=== PATIENT | female | born 1950 | race Caucasian/White ===

== ENCOUNTER → 2016-12-23 | Outpatient (CLI) | payer MEDICARE, OTHER ==
--- NOTE | 2016-12-23 11:40 | XR ---
EXAMINATION TYPE: XR chest 2V DATE OF EXAM: 12/23/2016 COMPARISON: NONE INDICATION: Cough, rib pain TECHNIQUE: Frontal and lateral views of the chest are obtained. FINDINGS: The heart size is borderline prominent. The pulmonary vasculature is normal. The lungs are clear. No displaced rib fractures are identified. No pneumothorax is evident. IMPRESSION: 1. No acute pulmonary process.
== END | disposition home or self-care (01) ==
LOC: RADXRMAIN 10:46
PROVIDERS: ATTEND Family Medicine
DX: R05 Cough (principal)
CPT/HCPCS: 71020

== ENCOUNTER 2017-04-13 07:11 | Inpatient (IN) | payer MEDICARE, OTHER ==
[2017-04-10 08:07] VITALS: BMI 32.6
--- NOTE | 2017-04-12 12:04 | HP ---
HISTORY AND PHYSICAL Surgery is 04/13/2017 Nora Reyes is a 66-year-old patient seen with symptomatic left knee osteoarthritis. After treatment options were discussed, the patient elected to proceed with left total knee arthroplasty. Consent was obtained. Medical clearance was provided by Dr. Slim Ku. PAST MEDICAL HISTORY: Hypertension, hyperlipidemia. PAST SURGICAL HISTORY: Left knee arthroscopy. Hysterectomy. Herniorrhaphy. DAILY MEDICATIONS: Aspirin, hydrochlorothiazide, simvastatin. ALLERGIES: None reported. SOCIAL HISTORY: Patient denies tobacco use. PHYSICAL EVALUATION LEFT KNEE: Range of motion 0-120 degrees. Moderate effusion. Tenderness medial joint line. Crepitus along the medial and patellofemoral compartments with range of motion. Pain with patellofemoral compression. Ligaments stable. Hip rotation without pain. Distal neurovascular exam intact. Left knee radiographs reveal severe medial and moderate patellofemoral compartment osteoarthritis. IMPRESSION: Left knee osteoarthritis. PLAN: Left total knee arthroplasty. MMODL / IJN: [id number] /
[~2017-04-13 07:11] MED LIST: ACETAMINOPHEN TAB 500 MG TAB PO ONE; DEXAMETHASONE SOD PHOSPHATE 10 MG/ML 1 ML VIAL IV ONE; HYDROmorphone 0.5 MG/0.5 ML SYRINGE IVP PRN; LACTATED RINGERS 1,000 ML IV SCH; MELOXICAM 7.5 MG TAB PO ONE; MIDAZOLAM 2 MG/2 ML VIAL IV PRN; ONDANSETRON 4 MG/2 ML VIAL IVP ONE; SCOPOLAMINE 1.5MG/72HR PATCH TRANSDERM ONE; TRANEXAMIC ACID 1,000 MG in SODIUM CHLORIDE 0.9% 100 ML IVPB ONE; ceFAZolin 2 GM in SODIUM CHLORIDE 0.9% 100 ML IVPB ONE
[2017-04-13] MEDS ORDERED: LACTATED RINGERS 1,000 ML IV ONE ×2 (08:53→11:00)
[2017-04-13] MEDS ORDERED: ROPIVACAINE 246.25 MG, EPINEPHrine 0.5 MG, KETOROLAC 30 MG, cloNIDine HCL/PF 80 MCG, WA... MISCELLANE ONE ×5 (09:43)
[2017-04-13] MEDS ORDERED: PROPOFOL 10 MG/ML 20 ML VIAL IV ONE (10:16)
[2017-04-13] MEDS ORDERED: MIDAZOLAM 2 MG/2 ML VIAL ONE (10:16)
[2017-04-13] MEDS ORDERED: ePHEDrine SULFATE/0.9% NACL/PF 50 MG/5 ML SYRINGE IV ONE (10:16)
[2017-04-13] MEDS ORDERED: fentaNYL (PF) 50 MCG/ML 2 ML AMP ONE (10:16)
[2017-04-13] MEDS ORDERED: SODIUM CHLORIDE 0.9% 100 ML BAG ONE (10:16)
[2017-04-13] MEDS ORDERED: TRANEXAMIC ACID 1,000 MG/10 ML VIAL ONE (10:16)
[2017-04-13] MEDS ORDERED: ROPIVACAINE 1,100 MG, SODIUM CHLORIDE 0.9% 330 ML MISCELLANE PRN ×2 (10:36)
--- NOTE | 2017-04-13 10:37 | P.ONQ ---
Anesthesiology Proc Note - PNB - Peripheral Nerve Block Performed Left Adductor Canal Indication: Acute Post-Operative Pain, Requested by physician (Dr Robertson) Sedation Type: Sedate with meaningful contact maintained Preparation: Sterile Dressing Position: Supine Catheter: Indwelling Needle Types: Other (see comment) (Vicky) Needle Size: 100mm (4") Needle Gauge: 18 Technique: Ultrasound Injectate: 0.5% Ropivacaine (see comment for volume) (20cc) Blood Aspirated: No Pain Paresthesia on Injection Noted: No Resistance on Injection: Normal Events: Uneventful and Well Tolerated
[2017-04-13] MEDS ORDERED: ceFAZolin 3,000 MG in SODIUM CHLORIDE 0.9% IRRIGATIO 3,000 ML IRRIGATION ONE (10:49)
[2017-04-13] MEDS ORDERED: ONDANSETRON 4 MG/2 ML VIAL IVP PRN (12:13)
[2017-04-13] MEDS ORDERED: hydrOXYzine PAMOATE 25 MG CAP PO PRN (12:13)
[2017-04-13] MEDS ORDERED: HYDROmorphone 0.5 MG/0.5 ML SYRINGE IVP PRN ×3 (12:13)
[2017-04-13] MEDS ORDERED: NALOXONE 0.4 MG/ML 1 ML VIAL IV PRN (12:13)
[2017-04-13] MEDS ORDERED: HYDROcodone/APAP 7.5-325MG 1 EACH TAB PO PRN (12:13)
--- NOTE | 2017-04-13 12:13 | P.OP ---
Date of Procedure: 04/13/17 Preoperative Diagnosis: Left knee osteoarthritis Postoperative Diagnosis: Left knee osteoarthritis Procedure(s) Performed: Left total knee arthroplasty Implants: 1. Henry persona left narrow size 9 cruciate retaining cemented femur 2. Henry persona size F cemented tibia 3. Henry persona 14 mm medial congruent polyethylene tibial insert 4. Henry persona 38 mm cemented all polyethylene patella Anesthesia: regional (Adductor canal catheter), local, spinal Surgeon: Nathan Robertson Survey Statistician #1: Cody Jean Estimated Blood Loss (ml): 200 Pathology: other (Bone) Condition: stable Disposition: PACU Indications for Procedure: 66-year-old patient seen with progressive left knee pain. After treatment options were discussed, she elected to proceed with total knee arthroplasty. Operative Findings: See description of procedure Description of Procedure: Patient was taken to the operative suite after having a adductor canal catheter placed by the department of anesthesia. Patient underwent a spinal anesthetic by the department of anesthesia. Patient was given preoperative IV intake antibiotics and TXA. A well-padded tourniquet was placed about the [] lower extremity. The lower extremity was then prepped and draped in the normal sterile orthopedic fashion. A standard anterior incision was made sharply through skin. Dissection was taken down through the subcutaneous soft tissues down to the extensor mechanism. A medial arthrotomy was performed, patella was everted and knee was flexed. There was advanced osteoarthritis noted. A proximal tibial cutting guide was positioned. Proximal tibial cut was made. A distal intramedullary femoral cutting guide was positioned, distal femoral cut made. We placed the appropriate sizing guide and selected the appropriate size. A distal 4-in-1 femoral cutting block was positioned, distal femoral cuts were made. We now placed a trial femoral component into position, along with an appropriate size tibial tray and insert. We now took the knee through range of motion and had full extension good flexion and good overall soft tissue balance noted. The patella was everted and a flush cut made with patellar quad tendon. We templated the patella, appropriate drill holes were made. An appropriate trial patella was positioned, knee was taken through full range of motion with the patella tracking very nicely. The trial patella was removed. Drill holes were made through the femoral component. All trial components were removed after marking off the appropriate rotation of the tibia. The tourniquet was insufflated to 350. Retractors were now positioned along the proximal tibia. An appropriate keel punch was made with the appropriate size tibial guide. At this point appropriate size implants were chosen and opened. The joint was irrigated copiously with pulse lavage mechanical irrigation. The deep soft tissues were infiltrated local analgesic. We mixed antibiotic methylmethacrylate. Once the methyl methacrylate was ready, the tibial component was cemented into place removing any excess methylmethacrylate. The femoral component was cemented into place removing the removing any excess methylmethacrylate. We then inserted the appropriate size polyethylene tibial insert. We made sure that it was locked into position. We took the knee into full extension, and then back in a flexion making sure we had removed any excess methylmethacrylate. The patellar component was then cemented down and secured with clamp. Excess methylmethacrylate removed. We kept the knee in full extension, patellar clamp in position until methylmethacrylate had hardened. Once it had hardened the patellar clamp was removed. The knee was taken through full range of motion. The patella tracked nicely. There was good soft tissue balancing. The tourniquet was now released. Additional hemostasis was achieved via electrocautery. A second gram of TXA was given. The wound was irrigated with pulse lavage mechanical irrigation. The superficial soft tissues were infiltrated local analgesic. The extensor mechanism was repaired with Vicryl. We checked the repair with range of motion and it was stable. The subcutaneous soft tissues were repaired with Vicryl in layers. The skin was approximated with pernio/Dermabond. Sterile dressings were applied followed by loose web roll and Melvin bandage. The patient was transferred to a bed, and taken to recovery in stable and satisfactory condition. Nick BAILEY assisted with the procedure.
--- NOTE | 2017-04-13 13:04 | XR ---
EXAMINATION TYPE: XR knee limited LT DATE OF EXAM: 04/13/2017 CLINICAL HISTORY: Left knee pain and arthritis status post total knee replacement. TECHNIQUE: Portable AP and crosstable lateral views of the left knee are obtained immediately postop eratively. COMPARISON: None FINDINGS: Metallic hardware from total left knee arthroplasty is seen and appears satisfactory in al ignment and position. There is evidence of recent surgery with diffuse subcutaneous gas and soft tis tony swelling noted. Overlying bandage or gauze material is present. IMPRESSION: METALLIC HARDWARE FROM TOTAL LEFT KNEE ARTHROPLASTY IS SATISFACTORY IN ALIGNMENT.
[2017-04-13] MEDS: HYDROcodone/APAP 7.5-325MG 1 EACH TAB PO PRN ×2 (14:16→20:09)
[2017-04-13] MEDS: LACTATED RINGERS 1,000 ML IV SCH ×2 (14:43→14:56)
[2017-04-13] MEDS: traMADol 50 MG TAB PO SCH ×3 (14:55→23:32)
[2017-04-13] MEDS: ceFAZolin 2 GM in SODIUM CHLORIDE 0.9% 100 ML IVPB SCH (18:22)
[2017-04-13] MEDS ORDERED: SENNOSIDES-DOCUSATE SODIUM 1 EACH TAB PO SCH (21:00)
--- NOTE | 2017-04-13 23:11 | CONS ---
CONSULTATION I am covering for Dr. Slim Munoz. DATE OF SERVICE: 04/13/2017 REASON FOR CONSULTATION: Advice regarding hypertension and other medical issues, requested by Orthopedic Surgery. HISTORY OF PRESENT ILLNESS: This 66-year-old woman with past medical history of hypertension, hyperlipidemia, history of mitral valve prolapse, history of DJD, being followed by Dr. Slim Munoz in the outpatient setting, was admitted after left total knee arthroplasty by Dr. Robertson for severe osteoarthritis. There is no history of any fever, rigor or chills, no history of headache, loss of consciousness, chest pain, palpitation at this time. PAST MEDICAL HISTORY: 1. History of hypertension. 2. Hyperlipidemia. 3. History of mitral valve prolapse. 4. History of hernia repair. 5. History of hysterectomy. MEDICATIONS PRIOR TO ADMISSION: 1. Zocor 20 mg p.o. daily. 2. Magnesium 400 mg p.o. daily. 3. Vitamin D3 2000. 4. Calcium 600 mg b.i.d. 5. Ziac 5/6.25 mg p.o. daily. 6. Ecotrin 81 mg daily. ALLERGIES: NONE. FAMILY HISTORY: History of DVT in the family. SOCIAL HISTORY: History of occasional alcohol intake. No history of smoking. REVIEW OF SYSTEMS: ENT: No diminished hearing. No diminished vision. CARDIOVASCULAR SYSTEM: No angina, palpitations. RESPIRATORY SYSTEM: No cough, hemoptysis. GI: No nausea or vomiting. : No dysuria or retention. NERVOUS SYSTEM: No numbness, weakness. ALLERGY/IMMUNOLOGY: No asthma, hayfever. MUSCULOSKELETAL: As mentioned earlier. HEMATOLOGY/ONCOLOGY: No history of anemia. ENDOCRINE: No history of diabetes, hypothyroidism. CONSTITUTIONAL: As mentioned earlier. DERMATOLOGY: Negative. RHEUMATOLOGIC: Negative. PSYCHIATRIC: As mentioned earlier. PHYSICAL EXAMINATION: Patient is alert, oriented x3. Pulse 54, blood pressure 119/66, respiration 16, temperature normal, pulse ox 96% on room air. HEENT: Conjunctivae normal. Oral mucosa moist. NECK: No jugular venous distention. No carotid bruit. No lymph node enlargement. CARDIOVASCULAR SYSTEM: S1, S2 muffled. RESPIRATORY SYSTEM: Breath sounds diminished at the bases. A few scattered rhonchi. ABDOMEN: Soft, nontender. No mass palpable. LEGS: Status post knee arthroplasty. NERVOUS SYSTEM: Higher functions as mentioned earlier. Moves all four limbs. No focal sensory or motor deficits. LYMPHATICS: No lymph node palpable in neck, axillae or groin. SKIN: No ulcer, rash, bleeding. LABS: Labs done preoperatively -- CBC and CMP noted. Cholesterol LDL is 140, cholesterol 231. TSH 4.80. Free T4 is normal; 25-OH vitamin D total is only 16. UA noted. ASSESSMENT: 1. Status post left total knee arthroplasty. 2. Hypertension. 3. Hyperlipidemia. 4. Degenerative joint disease. 5. Vitamin D deficiency. RECOMMENDATIONS AND DISCUSSION: In this 66-year-old woman who presented with multiple complex medical issues, we will monitor the patient closely, continue the current management and symptomatic treatment. Otherwise at this time I recommend resuming the home medications, DVT prophylaxis. Patient is on vitamin D3 supplements 2000 units daily. Continue to monitor. Further recommendations to follow. Dr. Munoz will follow. Aspirin may be initiated when okay with Orthopedics. DVT prophylaxis. See orders for further details. MMODL / IJN: [id number] /
[2017-04-13] MEDS: ENOXAPARIN 30 MG/0.3 ML SYRINGE SQ SCH (23:29)
[2017-04-14] MEDS: HYDROcodone/APAP 7.5-325MG 1 EACH TAB PO PRN ×3 (01:45→15:36)
[2017-04-14] MEDS: ceFAZolin 2 GM in SODIUM CHLORIDE 0.9% 100 ML IVPB SCH (02:43)
--- NOTE | 2017-04-14 06:10 | P.PN ---
Progress Note - Text The patient is status post left adductor canal catheter placement. The catheter was placed for postoperative pain control, status post total left arthroplasty. Ropivacaine 0.2% is infusing at 8 mLs per hour. The patient has no complaints of left lower extremity numbness or weakness. Patient's VAS score is 1-2-10. Assessment: Patient's adductor canal catheter is in place and working appropriately. Plan: continue infusion and adjust it as needed.
[2017-04-14 07:26] LABS: Basophils % (A) 0 %; CH 31.9; CHCM 34.4; Eosinophils % (A) 0 %; HCT 35.6 % (34.0-46.0); HDW 2.91; HGB 12.2 gm/dL (11.4-16.0); Luc # (Auto) 0.15; Luc % (Auto) 2; Lymphocytes # (A) 1.3 k/uL (1.0-4.8); Lymphocytes % (A) 15 %; MCHC 34.3 g/dL (31.0-37.0); MCV 93.2 fL (80.0-100.0); Mean Platelet Volume 6.8; Monocytes # (A) 0.7 k/uL (0-1.0); Monocytes % (A) 7 %; Neutrophils # (A) 7.1 k/uL (1.3-7.7); Neutrophils % (A) 76 %; RBC 3.82 m/uL (3.80-5.40); RDW 13.4 % (11.5-15.5); WBC 9.3 k/uL (3.8-10.6); WBC (Perox) 9.51
[2017-04-14 08:00] VITALS: BP 136/78; PULSE 66; RESP 12; TEMP 97.9
[2017-04-14] MEDS: ENOXAPARIN 30 MG/0.3 ML SYRINGE SQ SCH (08:03)
[2017-04-14] MEDS: traMADol 50 MG TAB PO SCH ×2 (08:03→12:30)
[2017-04-14] MEDS ORDERED: ASPIRIN 81 MG PO SCH (09:00)
[2017-04-14] MEDS ORDERED: ATORVASTATIN 10 MG TAB PO SCH (09:00)
[2017-04-14] MEDS ORDERED: MELOXICAM 7.5 MG TAB PO SCH (09:00)
[2017-04-14] MEDS ORDERED: BISOPROLOL-HCTZ 5-6.25 MG 1 EACH TAB PO SCH (09:00)
[2017-04-14] MEDS ORDERED: MAGNESIUM OXIDE 400 MG TAB PO SCH (09:00)
[2017-04-14] MEDS ORDERED: CHOLECALCIFEROL 1,000 UNIT TAB PO SCH (09:00)
[2017-04-14] MEDS ORDERED: CALCIUM CARBONATE 500 MG CHEWABLE PO SCH (09:00)
[2017-04-14] MEDS ORDERED: FAMOTIDINE 20 MG TAB PO SCH (09:00)
[2017-04-14] MEDS: LACTATED RINGERS 1,000 ML IV SCH (10:01)
--- NOTE | 2017-04-14 11:12 | P.PN ---
Subjective Patient sitting in chair at side of bed. States pain controlled pain or shortness of breath vital signs stable Objective - Vital Signs Vital signs: Vital Signs Temp 97.9 F 04/14/17 07:00 Pulse 66 04/14/17 07:00 Resp 12 04/14/17 07:00 BP 136/78 04/14/17 07:00 Pulse Ox 95 04/14/17 07:00 Intake & Output 04/13/17 04/14/17 04/14/17 18:59 06:59 18:59 Intake Total 1451 1200 Output Total 500 1550 100 Balance 951 -350 -100 Intake: IV 1301 1200 Lactated Ringers 1,000 ml 1200 @ 100 mls/hr IV .Q10H ZAN Rx#:[id number] Oral 150 Output: Urine 300 1550 100 Uretheral (Nuñez) 1200 100 Estimated Blood Loss 200 Other: Voiding Method Indwelling Catheter Indwelling Catheter - Constitutional General appearance: Present: obese - EENT Eyes: Present: PERRLA Ears: bilateral: normal - Neck Neck: Present: normal ROM - Respiratory Respiratory: bilateral: CTA - Cardiovascular Rhythm: regular - Gastrointestinal General gastrointestinal: Present: soft - Integumentary Integumentary: Present: normal - Neurologic Neurologic: Present: CNII-XII intact - Psychiatric Psychiatric: Present: A&O x's 3, appropriate affect, intact judgment & insight - Labs CBC & Chem 7: 04/14/17 06:58 Assessment and Plan Plan: Assessment Post total left knee arthroplasty history of osteoarthritis Hypertension Hyperlipidemia Plan Vital signs stable Medically cleared for discharge
--- NOTE | 2017-04-14 13:16 | P.PN ---
Subjective Principal diagnosis: Status post left total knee arthroplasty Patient is seen today resting in her hospital chair, she appears comfortable. Patient's pain is well-controlled. She is ambulatory well with therapy. She denies headaches, lightheadedness, chest pain, shortness of breath. Objective - Vital Signs Vital signs: Vital Signs Temp 97.9 F 04/14/17 07:00 Pulse 66 04/14/17 07:00 Resp 12 04/14/17 07:00 BP 136/78 04/14/17 07:00 Pulse Ox 95 04/14/17 07:00 Intake & Output 04/13/17 04/14/17 04/14/17 18:59 06:59 18:59 Intake Total 1451 1200 Output Total 500 1550 100 Balance 951 -350 -100 Intake: IV 1301 1200 Lactated Ringers 1,000 ml 1200 @ 100 mls/hr IV .Q10H ZAN Rx#:[id number] Oral 150 Output: Urine 300 1550 100 Uretheral (Nuñez) 1200 100 Estimated Blood Loss 200 Other: Voiding Method Indwelling Catheter Indwelling Catheter - Exam Left lower extremity: Incision is clean, dry and intact. Minimal ecchymosis present on the medial and lateral aspects knee incision. The calf is soft, no tenderness with palpation. Plantar flexion, dorsiflexion, EHL, FHL are intact. Sensory exam to light touch throughout the extremities intact. Dorsal pedis pulses 2+. - Labs CBC & Chem 7: 04/14/17 06:58 Assessment and Plan Plan: Assessment: 1. Postop day #1 status post left total knee arthroplasty Plan: 1. Pain control, continue use of oral medication 2. Daily therapy and use of CPM 3. Wound care instructions were discussed 4. GI and DVT prophylaxis, we'll discharge home on aspirin 25 mg twice a day 5. Medical recommendations 6. Discharge planning: Patient will be likely discharged home today Time with Patient: Less than 30
--- NOTE | 2017-04-14 13:21 | P.DS ---
Providers Date of admission: 04/13/17 08:21 Attending physician: Nathan Robertson Consults: 04/13/17 12:13 Consult Physician Routine Consulting Provider: Slim Munoz Consult Reason/Comments: Medical management Do you want consulting provider notified?: Yes Primary care physician: Slim Munoz Hospital Course: Date of admission: 04/13/2017 Date of discharge: 04/14/2017 Admission diagnosis: Status post left total knee arthroplasty Discharge diagnosis: Same Attending physician: Dr. Robertson Surgical procedures: Left total knee arthroplasty Brief history: Patient is a 66-year-old female with a history of progressive primary left knee osteoarthritis. At this point patient has failed conservative treatment measures and has opted to proceed with a elective left total knee arthroplasty. Hospital course: Details of patient's surgery can be found in operative report. Patient tolerated the procedure well and was subsequently transported to orthopedic floor. Patient's orthopeidc and medical care was provided daily. Patient had daily laboratory tests performed for evaluation of overall blood counts. Patient had daily physical therapy to include strengthening range of motion as well as education with walker ambulation. Patient had daily CPM usage as part of their physical therapy program. Patient was treated with Lovenox for their postoperative DVT prophylaxis during their inpatient stay. Patient was noted to have a relatively uneventful postoperative course. Patient reported satisfactory pain control with oral pain medications by postoperative day 0. Patient showed satisfactory progress with physical therapy. Patient moved steadily through the program and had no difficulty meeting the goals by postoperative day 1. Given patient's otherwise satisfactory course and having met physical therapy goals, plan is to discharge patient home on postoperative day 1. Discharge condition/disposition: Patient will be discharged home in stable condition. Discharge medications: Instructions are given on resumption of patient's normal daily medications per primary care recommendation, in addition patient will be prescribed [place] 7.5 mg/325 mg, tramadol 50 mg, Colace milligrams, Pepcid 20 mg , aspirin 325 mg. Discharge instructions: 1. Wound care and infection precautions, keep incision dry and covered while showering, no lotions, creams, moisturizers. No soaking, tubs, pools, hottubs. Do not scrub over the incision. 2. Weight-bear as tolerated with walker / cane until follow-up. 3. Ice and elevate when necessary. Do not exceed 20 minutes per hour with ice pack. 4. Utilize compression sleeve until seen at first follow up appointment. 5. Visiting nursing care. 6. Home physical therapy [including home CPM]. 7. Pain meds and anticoagulants per prescription. 8. Pain medication has potential to cause constipation. Increase oral fluid and fiber intake. Contact primary care provider if you have not had a bowel movement within 48 hours after discharge 9. No anti-inflammatory medication until discussed at first post operative visit, this including Motrin, Aleve, Mobic, Diclofenac. 10. Follow up in office at 2 weeks postop with Nick Jean PA-C 11. Follow up with your primary care doctor 7-10 days after discharge. 12. Contact [facility] with any questions, . Procedures: Left total knee arthroplasty Patient Condition at Discharge: Good Plan - Discharge Summary New Discharge Prescriptions: New Aspirin 325 mg PO BID #60 tab Docusate [Colace] 100 mg PO DAILY #30 capsule Famotidine [Pepcid] 20 mg PO DAILY #30 tablet HYDROcodone/APAP 7.5-325MG [[place] 7.5] 1 - 2 each PO Q6HR PRN #40 tab PRN Reason: Pain traMADol HCl [Ultram] 50 mg PO Q6H PRN #30 tab PRN Reason: Pain No Action Simvastatin [Zocor] 20 mg PO DAILY Cholecalciferol [Vitamin D3] 2,000 unit PO DAILY Magnesium 400 mg PO DAILY Aspirin [Adult Low Dose Aspirin EC] 81 mg PO DAILY Bisoprolol-Hctz 5-6.25 mg [Ziac 5-6.25] 1 tab PO DAILY Calcium Carbonate [Calcium] 600 mg PO DAILY Discharge Medication List Simvastatin [Zocor] 20 mg PO DAILY 03/18/15 [History] Aspirin [Adult Low Dose Aspirin EC] 81 mg PO DAILY 08/15/15 [History] Cholecalciferol [Vitamin D3] 2,000 unit PO DAILY 08/15/15 [History] Magnesium 400 mg PO DAILY 08/15/15 [History] Bisoprolol-Hctz 5-6.25 mg [Ziac 5-6.25] 1 tab PO DAILY 04/10/17 [History] Calcium Carbonate [Calcium] 600 mg PO DAILY 04/10/17 [History] Aspirin 325 mg PO BID #60 tab 04/14/17 [Rx] Docusate [Colace] 100 mg PO DAILY #30 capsule 04/14/17 [Rx] Famotidine [Pepcid] 20 mg PO DAILY #30 tablet 04/14/17 [Rx] HYDROcodone/APAP 7.5-325MG [[place] 7.5] 1 - 2 each PO Q6HR PRN #40 tab 04/14/17 [ Rx] traMADol HCl [Ultram] 50 mg PO Q6H PRN #30 tab 04/14/17 [Rx] Follow up Appointment(s)/Referral(s): Cody Jean PAC [PHYSICIAN [employer]WMEMBER] - 04/29/17 1:30 pm [facility] Visiting Nurse, [NON-STAFF] - Patient Instructions/Handouts: *Surgery [facility] - On-Q Pain Pump Discharge Instructions, Knee Replacement (DC) Activity/Diet/Wound Care/Special Instructions: CPM through [facility], please call when arrive home [phone]. Orthopedic Discharge Instructions: 1. Wound care and infection precautions, keep incision dry and covered while showering, no lotions, creams, moisturizers. No soaking, pools, hot tubs. Do not scrub over incision. 2. Weight-bear as tolerated with walker / cane until follow-up. 3. Ice and elevate when necessary. Do not exceed 20 minutes per hour with ice pack. 4. Utilize compression sleeve until seen at first follow up appointment. 5. Visiting nursing care. 6. Home physical therapy including home CPM. 7. Pain meds and anticoagulants per prescription. 8. Pain medication has potential to cause constipation. Increase oral fluid and fiber intake. Contact primary care provider if you have not had a bowel movement within 48 hours after discharge. 9. No anti-inflammatory medication until discussed at first post operative visit, this including Motrin, Aleve, Mobic, Diclofenac. 10. Follow up in office at 2 weeks postop with Nick Jean PA-C 11. Follow up with your primary care doctor 7-10 days after discharge. 12. Contact [facility] with any questions, . Discharge Disposition: HOME WITH HOME HEALTH SERVICES
== END 2017-04-14 16:25 | disposition home health service (06) | DRG 470 ==
LOC: 2ORMAIN 08:21 → 3SUR 12:14
PROVIDERS: ADMIT Orthopaedic Surgery; ATTEND Orthopaedic Surgery
PROC: 0SRD0J9 Replacement of Left Knee Joint with Synthetic Substitute, Cemented, Open Approach (ICD-10-PCS; principal; 2017-04-13 10:05)
DX: M17.12 Unilateral primary osteoarthritis, left knee (principal); I10 Essential (primary) hypertension; E55.9 Vitamin D deficiency, unspecified; E78.5 Hyperlipidemia, unspecified; I34.1 Nonrheumatic mitral (valve) prolapse; Z79.899 Other long term (current) drug therapy; Z90.710 Acquired absence of both cervix and uterus; Z79.82 Long term (current) use of aspirin
CPT/HCPCS: 85025; 88300

== ENCOUNTER → 2017-05-20 | Outpatient (CLI) | payer MEDICARE ==
--- NOTE | 2017-05-21 09:39 | ECHOF ---
Referral Reason:I34.1 non rythmatic mitro valve prolapse MEASUREMENTS -------- HEIGHT: 172.7 cm WEIGHT: 97.5 kg BP: RVIDd: 4.1 cm (< 3.3) IVSd: 1.2 cm (0.6 - 1.1) LVIDd: 3.8 cm (3.9 - 5.3) LVPWd: 1.4 cm (0.6 - 1.1) IVSs: 1.5 cm LVIDs: 2.6 cm LVPWs: 1.6 cm LA Diam: 3.7 cm (2.7 - 3.8) Ao Diam: 2.8 cm (2.0 - 3.7) AV Cusp: 1.8 cm (1.5 - 2.6) LA Diam: 4.0 cm (2.7 - 3.8) MV EXCURSION: 17.961 mm (> 18.000) MV EF SLOPE: 26 mm/s (70 - 150) EPSS: 0.2 cm MV E Yovany: 0.53 m/s MV DecT: 252 ms MV A Yovany: 0.57 m/s MV E/A Ratio: 0.93 RAP: 5.00 mmHg RVSP: 56.34 mmHg FINDINGS -------- Sinus rhythm. This was a technically adequate study. The left ventricular size is normal. There is mild concentric left ventricular hypertrophy. Overa ll left ventricular systolic function is normal with, an EF between 55 - 60 %. The right ventricle is moderate to severely enlarged. The right ventricular systolic function is m ildly impaired. The left atrial size is normal. The right atrial size is normal. The aortic valve is trileaflet, and appears structurally normal. No aortic stenosis or regurgitation. Mild mitral regurgitation is present. Moderate tricuspid regurgitation present. There is moderate pulmonary hypertension. The right clairsse tricular systolic pressure, as measured by Doppler, is 56.34mmHg. Trace/mild (physiologic) pulmonic regurgitation. Echo free space represents a pericardial fat pad. CONCLUSIONS -------- 1. Sinus rhythm. 2. This was a technically adequate study. 3. There is mild concentric left ventricular hypertrophy. 4. Overall left ventricular systolic function is normal with, an EF between 55 - 60 %. 5. The right ventricle is moderate to severely enlarged. 6. The right ventricular systolic function is mildly impaired. 7. The left atrial size is normal. 8. The aortic valve is trileaflet, and appears structurally normal. No aortic stenosis or regurgitati on. 9. Mild mitral regurgitation is present. 10. Moderate tricuspid regurgitation present. 11. There is moderate pulmonary hypertension. 12. Trace/mild (physiologic) pulmonic regurgitation. 13. Echo free space represents a pericardial fat pad. BUTTON DECORATING MACHINE OPERATOR: Bailey Constantino RDCS
== END | disposition home or self-care (01) ==
LOC: RADECHMAIN 13:10
PROVIDERS: ATTEND Family Medicine
DX: I08.1 Rheumatic disorders of both mitral and tricuspid valves (principal); I27.20 Pulmonary hypertension, unspecified; E65 Localized adiposity
CPT/HCPCS: 93306

== ENCOUNTER → 2017-09-16 | Outpatient (CLI) | payer MEDICARE ==
--- NOTE | 2017-09-16 12:59 | XR ---
EXAMINATION TYPE: XR chest 2V DATE OF EXAM: 09/16/2017 COMPARISON: NONE INDICATION: Abnormal EKG TECHNIQUE: Frontal and lateral views of the chest are obtained. FINDINGS: The heart size is upper limits of normal. The pulmonary vasculature is normal. The main pulmonary arteries appear prominent. No suspicious consolidation is evident. There appears to be some hyperinflation and flattening the di aphragms compatible with COPD. IMPRESSION: 1. COPD. 2. Prominent main pulmonary vascular vessels, correlate for pulmonary hypertension. 3. Mild cardiomegaly. 4. No acute pulmonary process.
== END | disposition home or self-care (01) ==
LOC: RADECHMAIN 11:07
PROVIDERS: ATTEND Family Medicine
DX: J44.9 Chronic obstructive pulmonary disease, unspecified (principal); R55 Syncope and collapse; I27.20 Pulmonary hypertension, unspecified
CPT/HCPCS: 71046; 93225; 93226

== ENCOUNTER → 2017-10-06 | Outpatient (CLI) | payer MEDICARE ==
--- NOTE | 2017-10-06 11:52 | US ---
EXAMINATION TYPE: US carotid duplex BILAT DATE OF EXAM: 10/06/2017 COMPARISON: NONE CLINICAL HISTORY: R55 Near Syncope,R94.31 Abnormal ekg. EXAM MEASUREMENTS: RIGHT: Peak Systolic Velocity (PSV) cm/sec ----- Right CCA: 74.7 ----- Right ICA: 67.7 ----- Right ECA: 73.0 ICA/CCA ratio: 0.9 RIGHT: End Diastole cm/sec ----- Right CCA: 21.5 ----- Right ICA: 22.3 ----- Right ECA: 11.9 LEFT: Peak Systolic Velocity (PSV) cm/sec ----- Left CCA: 74.7 ----- Left ICA: 80.0 ----- Left ECA: 100.9 ICA/CCA ratio: 1.1 LEFT: End Diastole cm/sec ----- Left CCA: 18.9 ----- Left ICA: 33.7 ----- Left ECA: 20.5 VERTEBRALS (direction of flow): Right Vertebral: Antegrade Left Vertebral: Antegrade Rhythm: Normal No significant stenosis seen, no elevated velocities, mild plaque left bulb. Grayscale, color Doppler, spectral Doppler imaging performed of the carotid arteries. IMPRESSION: No hemodynamic significant stenosis of the proximal internal carotid arteries bilaterall y by Doppler criteria, an indirect measurement of carotid stenosis. Atheromatous changes present with in the carotid bulb on the left. Consider follow-up.
== END | disposition home or self-care (01) ==
LOC: RADUSMAIN 08:06
PROVIDERS: ATTEND Family Medicine
DX: I67.2 Cerebral atherosclerosis (principal); R55 Syncope and collapse; R94.31 Abnormal electrocardiogram [ECG] [EKG]
CPT/HCPCS: 93880

== ENCOUNTER → 2018-05-17 | Outpatient (CLI) | payer MEDICARE ==
--- NOTE | 2018-05-18 10:35 | MM ---
Reason for exam: screening (asymptomatic). Last mammogram was performed 1 year ago. History: Patient is postmenopausal and history of other cancer. Physical Findings: A clinical breast exam by your physician is recommended on an annual basis and results should be correlated with mammographic findings. MG 3D Screening Mammo W/Cad Bilateral CC and MLO view(s) were taken. Prior study comparison: May 14, 2017, bilateral MG 3d screening mammo w/cad. October 15, 2015, right breast MG 3d diag mammo w/cad RT. The breast tissue is heterogeneously dense. This may lower the sensitivity of mammography. There are benign appearing round calcifications bilaterally. There is no discrete abnormality. ASSESSMENT: Benign, BI-RAD 2 RECOMMENDATION: Routine screening mammogram of both breasts in 1 year.
== END | disposition home or self-care (01) ==
LOC: RADMAMWWP 06:49
PROVIDERS: ATTEND Family Medicine
DX: Z12.31 Encounter for screening mammogram for malignant neoplasm of breast (principal)
CPT/HCPCS: 77063; 77067

== ENCOUNTER 2018-07-02 10:07 | Day surgery (SDC) | payer MEDICARE ==
[2018-06-30 15:42] VITALS: BMI 34.2
[~2018-07-02 10:07] MED LIST changes: -ACETAMINOPHEN TAB 500 MG TAB PO ONE; -MELOXICAM 7.5 MG TAB PO ONE; +MIDAZOLAM (PF) 2 MG/2 ML VIAL IV PRN; -MIDAZOLAM 2 MG/2 ML VIAL IV PRN; +Pre Op ABX Message 1 EACH MISC MISCELLANE ONE; -SCOPOLAMINE 1.5MG/72HR PATCH TRANSDERM ONE; -TRANEXAMIC ACID 1,000 MG in SODIUM CHLORIDE 0.9% 100 ML IVPB ONE; -ceFAZolin 2 GM in SODIUM CHLORIDE 0.9% 100 ML IVPB ONE
[2018-07-02 10:31] VITALS: RESP 16; TEMP 97.6
[2018-07-02] MEDS ORDERED: LIDOCAINE 1% 20 ML VIAL (10MG/ML) FOR IV START INTRADERMA ONE (10:46)
[2018-07-02] MEDS ORDERED: ceFAZolin IN SWFI 2 GM/20 ML SYRINGE IVP ONE (11:48)
[2018-07-02] MEDS ORDERED: MIDAZOLAM 2 MG/2 ML VIAL ONE (11:51)
[2018-07-02] MEDS ORDERED: fentaNYL (PF) 50 MCG/ML 2 ML AMP ONE (11:51)
[2018-07-02] MEDS ORDERED: BUPIVACAIN-EPI 0.25%-1:200,000 30 ML VIAL SQ ONE ×2 (12:05)
--- NOTE | 2018-07-02 12:39 | P.OP ---
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 I'll see did reveal squamous cell carcinoma. The lesion is located in the right lower extremity and plan is for excision. The patient was explained the risks, benefits and alternatives to the procedure and did provide consent prior to attending the operating suite. Operative Findings: Right lower extremity squamous cell carcinoma Description of Procedure: The patient was brought into the operating suite and placed in supine position on the operating table. Sedation was provided by anesthesia. The patient was then prepped and draped in regular sterile fashion. An elliptical incision was made approximately 6 x 4 cm in size around the carcinoma lesion. Hemostasis was maintained. Dissection was carried to excise the dermal tissue surrounding the incision. The specimen was sent, tagged with a short superior suture and a long lateral suture. The skin incision was then closed with multiple vertical mattress 2-0 nylon sutures. Sterile dressing was applied. The patient was awakened in the operating suite and taken to postanesthesia care unit in stable condition.
[2018-07-02 13:17] VITALS: BP 137/79; PULSE 59
== END 2018-07-02 13:34 | disposition home or self-care (01) ==
LOC: OR 10:07
PROVIDERS: ATTEND Surgery
DX: C44.722 Squamous cell carcinoma of skin of right lower limb, including hip (principal); Z85.828 Personal history of other malignant neoplasm of skin; I10 Essential (primary) hypertension; E78.00 Pure hypercholesterolemia, unspecified; Z82.49 Family history of ischemic heart disease and other diseases of the circulatory system; I34.1 Nonrheumatic mitral (valve) prolapse; E78.5 Hyperlipidemia, unspecified; Z79.82 Long term (current) use of aspirin; Z79.899 Other long term (current) drug therapy
CPT/HCPCS: 88305; 11606; J2250; J1100; J2405; J3010; J0690

== ENCOUNTER → 2018-09-23 | Outpatient (CLI) | payer MEDICARE ==
--- NOTE | 2018-09-23 11:59 | BD ---
EXAMINATION TYPE: Axial Bone Density DATE OF EXAM: 09/23/2018 COMPARISON: Prior DEXA bone scan 2010 CLINICAL HISTORY: Postmenopausal female. Height: 5FT 7 1/4 IN Weight: 224 FRAX RISK QUESTIONS: Secondary Osteoporosis: 3. Menopause before 45: YES RISK FACTORS HISTORY OF: Active: SOMEWHAT Postmenopausal woman: AGE 45 SINCE THEN HAD A TOTAL HYST AROUND MEDICATIONS: How Long: Additional Medications: SIMVASTATIN, BISOPROLOL, HCT, Additional History: EXAM MEASUREMENTS: Bone mineral densitometry was performed using the [employer] System. Bone mineral density as measured about the Lumbar spine is: ----- L1-L4(G/cm2): 1.377 T Score Values are as follows: ----- L2: 1.1 ----- L3: 1.8 ----- L4: 2.1 ----- L1-L4: 1.6 Bone mineral density has: INCREASED 3.1 % since study of: 2010 Bone mineral density about the R hip (g/cm2): 1.240 Bone mineral density about the L hip (g/cm2): 1.147 T Score values are as follows: -----R Neck: 1.5 -----L Neck: 0.8 -----R Total: 1.5 -----L Total: 1.1 Bone mineral density has: INCREASED 0.5 % since study of: 2010 IMPRESSION: Normal (Values between +1 and -1 indicate normal bone mass). Consider repeating this study in 5 year s or sooner if there is some new clinical indication. NOTE: T-SCORE=SD OF THE YOUNG ADULT MEAN.
== END | disposition home or self-care (01) ==
LOC: RADBDWWP 11:28
PROVIDERS: ATTEND Family Medicine
DX: Z78.0 Asymptomatic menopausal state (principal)
CPT/HCPCS: 77080

== ENCOUNTER → 2019-06-20 | Outpatient (CLI) | payer MEDICARE ==
--- NOTE | 2019-06-20 11:36 | MM ---
Reason for exam: screening (asymptomatic). Last mammogram was performed 1 year and 1 month ago. History: Patient is postmenopausal and history of other cancer. Physical Findings: A clinical breast exam by your physician is recommended on an annual basis and results should be correlated with mammographic findings. MG 3D Screening Mammo W/Cad Bilateral CC and MLO view(s) were taken. Prior study comparison: May 17, 2018, bilateral MG 3d screening mammo w/cad. May 14, 2017, bilateral MG 3d screening mammo w/cad. The breast tissue is heterogeneously dense. This may lower the sensitivity of mammography. Benign appearing bilateral calcifications. No suspicious abnormality. No significant changes when compared with prior studies. ASSESSMENT: Benign, BI-RAD 2 RECOMMENDATION: Routine screening mammogram of both breasts in 1 year.
== END | disposition home or self-care (01) ==
LOC: RADMAMWWP 06:47
PROVIDERS: ATTEND Family Medicine
DX: Z12.39 Encounter for other screening for malignant neoplasm of breast (principal)
CPT/HCPCS: 77063; 77067

== ENCOUNTER → 2019-09-23 | Outpatient (CLI) | payer MEDICARE ==
--- NOTE | 2019-09-23 16:11 | XR ---
EXAMINATION TYPE: XR Hip Bilateral and AP pelvis DATE OF EXAM: 09/23/2019 COMPARISON: NONE HISTORY: Bilateral hip pain with no known injury TECHNIQUE: A single AP view of the pelvis is obtained. Two views of both hips were obtained. FINDINGS: There is no acute fracture/dislocation evident in the pelvis. The hip and sacroiliac join ts appear symmetric and aligned. There is mild acetabular roof sclerosis and cephalad joint space megan rowing bilaterally. No cam deformity is are seen. The overlying soft tissue appears unremarkable. Two views of both hips show no acute fracture or dislocation. No focal lytic or sclerotic lesion see n in either proximal femur. The overlying soft tissue is unremarkable. IMPRESSION: There is no acute fracture or dislocation in the pelvis or the bilateral hips. Mild bila teral femoral acetabular arthropathy.
--- NOTE | 2019-09-24 08:09 | ECHOF ---
Referral Reason:I27.20 Pulmonary hypertension M25.551 MEASUREMENTS -------- HEIGHT: 172.7 cm WEIGHT: 101.6 kg BP: RVIDd: 4.0 cm (< 3.3) IVSd: 1.0 cm (0.6 - 1.1) LVIDd: 3.2 cm (3.9 - 5.3) LVPWd: 1.4 cm (0.6 - 1.1) IVSs: 1.7 cm LVIDs: 2.6 cm LVPWs: 1.4 cm LA Diam: 3.8 cm (2.7 - 3.8) LAESV Index (A-L): 25.30 ml/m Ao Diam: 2.8 cm (2.0 - 3.7) AV Cusp: 1.8 cm (1.5 - 2.6) LA Diam: 4.5 cm (2.7 - 3.8) MV EXCURSION: 15.228 mm (> 18.000) MV EF SLOPE: 40 mm/s (70 - 150) EPSS: 0.2 cm MV E Yovany: 0.64 m/s MV DecT: 288 ms MV A Yovany: 0.91 m/s MV E/A Ratio: 0.71 RAP: 5.00 mmHg RVSP: 48.59 mmHg FINDINGS -------- Sinus rhythm. This was a technically good study. The left ventricular size is normal. Left ventricular wall thickness is normal. Overall left vent ricular systolic function is low-normal with, an EF between 50 - 55 %. The right ventricle is moderately enlarged. The left atrium is moderately dilated. The right atrial size is normal. The aortic valve is trileaflet, and appears structurally normal. No aortic stenosis or regurgitation. Mild mitral annular calcification present. Mild mitral regurgitation is present. Mild tricuspid regurgitation present. There is moderate pulmonary hypertension. The right ventric ular systolic pressure, as measured by Doppler, is 48.59mmHg. Trace/mild (physiologic) pulmonic regurgitation. The aortic root size is normal. There is no pericardial effusion. CONCLUSIONS -------- 1. Sinus rhythm. 2. This was a technically good study. 3. The left ventricular size is normal. 4. Left ventricular wall thickness is normal. 5. Overall left ventricular systolic function is low-normal with, an EF between 50 - 55 %. 6. The right ventricle is moderately enlarged. 7. The left atrium is moderately dilated. 8. The right atrial size is normal. 9. The aortic valve is trileaflet, and appears structurally normal. No aortic stenosis or regurgitati on. 10. Mild mitral annular calcification present. 11. Mild mitral regurgitation is present. 12. Mild tricuspid regurgitation present. 13. There is moderate pulmonary hypertension. 14. The right ventricular systolic pressure, as measured by Doppler, is 48.59mmHg. 15. Trace/mild (physiologic) pulmonic regurgitation. 16. The aortic root size is normal. 17. There is no pericardial effusion. J[employer]ETING ASSOCIATE: Bailey Constantino RDCS
== END | disposition home or self-care (01) ==
LOC: RADECHMAIN 14:38
PROVIDERS: ATTEND Family Medicine
DX: I27.20 Pulmonary hypertension, unspecified (principal); I08.1 Rheumatic disorders of both mitral and tricuspid valves; M12.851 Other specific arthropathies, not elsewhere classified, right hip
CPT/HCPCS: 73521; 93306

== ENCOUNTER → 2020-02-29 | Outpatient (CLI) | payer MEDICARE ==
[2020-02-29 08:17] LABS: Basophils % (A) 1 %; Eosinophils # (A) 0.1 k/uL (0-0.7); Eosinophils % (A) 1 %; HCT 43.5 % (34.0-46.0); HGB 14.2 gm/dL (11.4-16.0); Lymphocytes # (A) 1.6 k/uL (1.0-4.8); Lymphocytes % (A) 31 %; MCH 30.3 pg (25.0-35.0); MCHC 32.7 g/dL (31.0-37.0); MCV 92.7 fL (80.0-100.0); Mean Platelet Volume 6.8; Monocytes # (A) 0.4 k/uL (0-1.0); Monocytes % (A) 7 %; Neutrophils % (A) 57 %; Platelet Count 240 k/uL (150-450); RBC 4.69 m/uL (3.80-5.40); RDW 13.6 % (11.5-15.5); WBC 5.3 k/uL (3.8-10.6)
[2020-02-29 15:35] LABS: African American GFR (CKD) 66.6 (60.0-200.0); Albumin 4.3 g/dL (3.80-4.90); Albumin/Globulin Ratio 1.95 (1.60-3.17); Anion Gap 5.9 mmol/L (4.00-12.00); Calcium 9.5 mg/dL (8.7-10.3); Carbon Dioxide 30.1 mmol/L (21.6-31.8); Chol/HDL Ratio 3.71; Globulin 2.2 g/dL (1.6-3.3); LDL Cholesterol,Calculated 111.8 mg/dL (0.0-131.0); Non-African American GFR(CKD) 57.4 (60.0-200.0); Potassium 4.1 mmol/L (3.5-5.5); Total Bilirubin 0.9 mg/dL (0.2-1.2); Total Protein 6.5 g/dL (6.2-8.2); VLDL Calculation 29.2 mg/dL (5.00-40.00)
== END | disposition home or self-care (01) ==
LOC: LABWHC1 07:28
PROVIDERS: ATTEND Nurse Practitioner Family
DX: E78.5 Hyperlipidemia, unspecified (principal); I10 Essential (primary) hypertension
CPT/HCPCS: 36415; 80053; 80061; 84443; 85025

== ENCOUNTER → 2020-07-12 | Outpatient (CLI) | payer MEDICARE ==
--- NOTE | 2020-07-17 10:00 | MM ---
Reason for exam: screening (asymptomatic). Last mammogram was performed 1 year and 1 month ago. History: Patient is postmenopausal and has history of other cancer at age 69. Physical Findings: A clinical breast exam by your physician is recommended on an annual basis and results should be correlated with mammographic findings. MG 3D Screening Mammo W/Cad Bilateral CC and MLO view(s) were taken. Prior study comparison: June 20, 2019, bilateral MG 3d screening mammo w/cad. May 17, 2018, bilateral MG 3d screening mammo w/cad. The breast tissue is heterogeneously dense. This may lower the sensitivity of mammography. 9 o'clock circumscribed nodularity more prominent on the CC view but similar on the MLO view. Precautionary 6 month follow up recommended. ASSESSMENT: Probably benign, BI-RAD 3 RECOMMENDATION: Follow-up diagnostic mammogram of the left breast in 6 months.
== END | disposition home or self-care (01) ==
LOC: RADMAMWWP 09:08
PROVIDERS: ATTEND Family Medicine
DX: Z12.31 Encounter for screening mammogram for malignant neoplasm of breast (principal)
CPT/HCPCS: 77063; 77067

== ENCOUNTER → 2021-01-17 | Outpatient (CLI) | payer MEDICARE ==
--- NOTE | 2021-01-17 13:32 | MM ---
Reason for exam: follow-up at short interval from prior study. Last mammogram was performed 6 months ago. History: Patient is postmenopausal and has history of other cancer at age 69. Physical Findings: Nurse did not find any significant physical abnormalities on exam. MG 3D Diag Mammo W/Cad LT Spot compression CC, CC, MLO, and LM view(s) were taken of the left breast. Prior study comparison: July 12, 2020, bilateral MG 3d screening mammo w/cad. June 20, 2019, bilateral MG 3d screening mammo w/cad. Three nodules. 12mm nodularity at 3 o'clock, 7cm from nipple. 10mm nodule at 3-4 o'clock, 5cm from nipple. 8mm nodule at 6-7 o'clock, 6.5cm from nipple. Ultrasound left breast. These results were verbally communicated with the patient and result sheet given to the patient on 01/17/21. ASSESSMENT: Incomplete: need additional imaging evaluation, BI-RAD 0 RECOMMENDATION: Ultrasound of the left breast.
--- NOTE | 2021-01-17 13:34 | USB ---
Reason for exam: additional evaluation requested from abnormal screening. History: Patient is postmenopausal and has history of other cancer at age 69. US Breast Limited LT Left limited breast ultrasound including focal area of concern, retroareolar and axilla demonstrates three cystic lesions measuring 1.0 x 0.8 x 0.4c, at 3 o'clock, 0.9 x 1.1 x 0.4cm at 4 o'clock and 0.3 x 0.3 x 0.3cm at 6 o'clock. Simple cysts, not all correspond to mammogram. Mammogram nodules probably benign, recommend 6 month follow up mammogram. These results were verbally communicated with the patient and result sheet given to the patient on 01/17/21. ASSESSMENT: Probably benign, BI-RAD 3 RECOMMENDATION: Follow-up diagnostic mammogram of the left breast in 6 months.
== END | disposition home or self-care (01) ==
LOC: RADMAMWWP 10:14
PROVIDERS: ATTEND Family Medicine
DX: Z08 Encounter for follow-up examination after completed treatment for malignant neoplasm (principal); N63.25 Unspecified lump in the left breast, overlapping quadrants; N63.23 Unspecified lump in the left breast, lower outer quadrant; N63.24 Unspecified lump in the left breast, lower inner quadrant; N60.02 Solitary cyst of left breast; Z78.0 Asymptomatic menopausal state; Z85.9 Personal history of malignant neoplasm, unspecified
CPT/HCPCS: 77065; 76642; G0279; 77061

== ENCOUNTER 2021-02-17 13:07 | Emergency (ER) | payer MEDICARE ==
[2021-02-17 13:11] VITALS: TEMP 97.7
[2021-02-17] MEDS ORDERED: SODIUM CHLORIDE 0.9% 1,000 ML IV ONE (13:23)
[2021-02-17] MEDS ORDERED: SODIUM CHLORIDE 0.9% 50 ML IVPB ONE ×2 (13:45→14:30)
--- NOTE | 2021-02-17 13:46 | ED ---
General Adult HPI - General Chief complaint: Recheck/Abnormal Lab/Rx Stated complaint: Covid+, trouble urinating Time Seen by Provider: 02/17/21 13:14 Source: patient, RN notes reviewed, old records reviewed Mode of arrival: ambulatory Limitations: no limitations - History of Present Illness Initial comments: 70-year-old female presenting with chief complaint weakness and concern for dehydration. Patient was diagnosed with coronavirus 2 days prior and states she has had symptoms of fatigue for the past 4 days. She denies cough or dyspnea. Denies chest pain. Denies abdominal pain. Denies nausea vomiting or diarrhea. She denies measured fever but states she's had some chills. She was vaccinated against coronavirus in August with 2 shots of the [employer] vaccine. - Related Data Home Medications Medication Instructions Recorded Confirmed Simvastatin [Zocor] 20 mg PO DAILY 03/18/15 07/02/18 Aspirin [Adult Low Dose Aspirin EC] 81 mg PO DAILY 08/15/15 07/02/18 Cholecalciferol [Vitamin D3 (25 1,000 unit PO DAILY 08/15/15 07/02/18 Mcg = 1000 Iu)] Magnesium 400 mg PO DAILY 08/15/15 07/02/18 Bisoprolol-Hctz 5-6.25 mg [Ziac 1 tab PO DAILY 04/10/17 07/02/18 5-6.25 MG] Calcium Carbonate [Calcium] 600 mg PO DAILY 04/10/17 07/02/18 Previous Rx's Medication Instructions Recorded Ibuprofen [Motrin] 600 mg PO Q6HR PRN #20 tab 07/02/18 Allergies Allergy/AdvReac Type Severity Reaction Status Date / Time No Known Allergies Allergy Verified 02/17/21 13:11 Review of Systems ROS Statement: Those systems with pertinent positive or pertinent negative responses have been documented in the HPI. ROS Other: All systems not noted in ROS Statement are negative. Past Medical History Past Medical History: Cancer, Hyperlipidemia, Hypertension, Mitral Valve Prolapse (MVP) Additional Past Medical History / Comment(s): hx skin cancer History of Any Multi-Drug Resistant Organisms: None Reported Past Surgical History: Hysterectomy, Orthopedic Surgery Additional Past Surgical History / Comment(s): arthroscopy lt knee Past Anesthesia/Blood Transfusion Reactions: No Reported Reaction Past Psychological History: No Psychological Hx Reported Smoking Status: Never smoker Past Alcohol Use History: Rare Past Drug Use History: None Reported - Past Family History Father Family Medical History: Deep Vein Thrombosis (DVT) General Exam Limitations: no limitations General appearance: alert, in no apparent distress Head exam: Present: atraumatic, normocephalic Eye exam: Present: normal appearance, PERRL ENT exam: Present: mucous membranes dry Neck exam: Present: normal inspection. Absent: tenderness, meningismus Respiratory exam: Present: normal lung sounds bilaterally. Absent: respiratory distress, wheezes, rales Cardiovascular Exam: Present: regular rate, normal rhythm GI/Abdominal exam: Present: soft. Absent: distended, tenderness, guarding Extremities exam: Present: pedal edema (Minimal edema right lower extremity) Neurological exam: Present: alert, oriented X3, CN II-XII intact. Absent: motor sensory deficit Psychiatric exam: Present: normal affect, normal mood Skin exam: Present: warm, dry, intact. Absent: cyanosis, diaphoretic Course Vital Signs 02/17/21 02/17/21 13:08 13:23 Temperature 97.7 F Pulse Rate 77 Respiratory 18 18 Rate Blood Pressure 145/84 O2 Sat by Pulse 99 Oximetry Medical Decision Making - Medical Decision Making 70-year-old female who had presented with fatigue and recent diagnosis of coronavirus. Patient well-appearing with stable vitals, normal oxygenation, lungs are clear, no respiratory complaints. She has a normal CBC, normal electrolytes, normal kidney function. She's given a liter fluid and she is a candidate for monoclonal antibody therapy which is administered in the emergency department. She's given strict return parameters. She will follow-up with her primary care physician. - Lab Data Result diagrams: 02/17/21 13:52 02/17/21 13:52 Lab Results 02/17/21 02/17/21 Range/Units 13:52 13:52 WBC 3.4 L (3.8-10.6) k/uL RBC 4.67 (3.80-5.40) m/uL Hgb 13.7 (11.4-16.0) gm/dL Hct 39.5 (34.0-46.0) % MCV 84.4 D (80.0-100.0) fL MCH 29.4 (25.0-35.0) pg MCHC 34.8 (31.0-37.0) g/dL RDW 13.6 (11.5-15.5) % Plt Count 221 (150-450) k/uL MPV 7.2 Neutrophils % 44 % Lymphocytes % 35 % Monocytes % 15 % Eosinophils % 1 % Basophils % 1 % Neutrophils # 1.5 (1.3-7.7) k/uL Lymphocytes # 1.2 (1.0-4.8) k/uL Monocytes # 0.5 (0-1.0) k/uL Eosinophils # 0.0 (0-0.7) k/uL Basophils # 0.0 (0-0.2) k/uL Sodium 130 L (137-145) mmol/L Potassium 3.8 (3.5-5.1) mmol/L Chloride 98 (98-107) mmol/L Carbon Dioxide 22 (22-30) mmol/L Anion Gap 10 mmol/L BUN 21 H (7-17) mg/dL Creatinine 0.84 (0.52-1.04) mg/dL Est GFR (CKD-EPI)AfAm 81 (>60 ml/min/1.73 sqM) Est GFR (CKD-EPI)NonAf 71 (>60 ml/min/1.73 sqM) Glucose 113 H (74-99) mg/dL Calcium 9.5 (8.4-10.2) mg/dL Total Bilirubin 0.4 (0.2-1.3) mg/dL AST 32 (14-36) U/L ALT 23 (4-34) U/L Alkaline Phosphatase 67 (38-126) U/L Total Protein 6.5 (6.3-8.2) g/dL Albumin 3.8 (3.5-5.0) g/dL Disposition Clinical Impression: COVID, Dehydration Disposition: HOME SELF-CARE Condition: Good Instructions (If sedation given, give patient instructions): Coronavirus Disease 2019 (COVID-19) Is patient prescribed a controlled substance at d/c from ED?: No Referrals: Slim Munoz MD [Primary Care Provider] - 1-2 days Time of Disposition: 14:48
[2021-02-17] MEDS ORDERED: CASIRIVIMAB (REGN10933) (EUA) 600 MG, IMDEVIMAB (REGN10987) (EUA) 600 MG in SODIUM CHLO... IVPB ONE (14:00)
[2021-02-17 14:03] LABS: Basophils % (A) 1 %; Eosinophils % (A) 1 %; HCT 39.5 % (34.0-46.0); HGB 13.7 gm/dL (11.4-16.0); Lymphocytes # (A) 1.2 k/uL (1.0-4.8); Lymphocytes % (A) 35 %; MCH 29.4 pg (25.0-35.0); MCHC 34.8 g/dL (31.0-37.0); Mean Platelet Volume 7.2; Monocytes # (A) 0.5 k/uL (0-1.0); Monocytes % (A) 15 %; Neutrophils # (A) 1.5 k/uL (1.3-7.7); Neutrophils % (A) 44 %; Platelet Count 221 k/uL (150-450); RBC 4.67 m/uL (3.80-5.40); RDW 13.6 % (11.5-15.5); WBC 3.4 k/uL (3.8-10.6)
[2021-02-17 14:15] LABS: MCV 84.4 fL (80.0-100.0)
[2021-02-17 14:23] LABS: Albumin 3.8 g/dL (3.5-5.0); Calcium 9.5 mg/dL (8.4-10.2); Potassium 3.8 mmol/L (3.5-5.1); Total Bilirubin 0.4 mg/dL (0.2-1.3); Total Protein 6.5 g/dL (6.3-8.2)
--- NOTE | 2021-02-17 14:39 | US ---
EXAMINATION TYPE: US venous doppler duplex LE RT DATE OF EXAM: 02/17/2021 2:18 PM COMPARISON: NONE CLINICAL HISTORY: dvt?. +covid, physician thought right leg looked swollen, patient had no complaints SIDE PERFORMED: Right TECHNIQUE: The lower extremity deep venous system is examined utilizing real time linear array sonog julia with graded compression, doppler sonography and color-flow sonography. VESSELS IMAGED: Common Femoral Vein Deep Femoral Vein Greater Saphenous Vein * Femoral Vein Popliteal Vein Small Saphenous Vein * Proximal Calf Veins (* superficial vessels) Right Leg: Negative for DVT IMPRESSION: No evidence of deep vein thrombosis in the right leg.
[2021-02-17 15:00] VITALS: BP 145/69; PULSE 69; RESP 12
[2021-02-17 15:04] LABS: Appearance,Urine Clear (Clear); Bilirubin,Urine Negative (Negative); Blood,Urine Negative (Negative); Color,Urine Light Yellow; Glucose,Urine (UA) Negative (Negative); Ketones,Urine Negative (Negative); Leukocyte Esterase,Urine Negative (Negative); Nitrite,Urine Negative (Negative); Protein,Urine Negative (Negative); Urobilinogen,Urine <2.0 mg/dL (<2.0)
== END 2021-02-17 15:30 | disposition home or self-care (01) ==
LOC: EC 13:07
DX: U07.1 COVID-19 (principal); E86.0 Dehydration; I10 Essential (primary) hypertension; E78.5 Hyperlipidemia, unspecified; Z79.82 Long term (current) use of aspirin; Z79.1 Long term (current) use of non-steroidal anti-inflammatories (NSAID); Z79.899 Other long term (current) drug therapy; Z85.828 Personal history of other malignant neoplasm of skin
CPT/HCPCS: 36415; 80053; 85025; 81003; 93971; 96374; 96361; 99285; Q0243

== ENCOUNTER → 2021-08-07 | Outpatient (CLI) | payer MEDICARE ==
--- NOTE | 2021-08-07 13:32 | MM ---
Reason for exam: follow-up at short interval from prior study. Last mammogram was performed 7 months ago. History: Patient is postmenopausal and has history of other cancer at age 69. Physical Findings: Nurse did not find any significant physical abnormalities on exam. MG 3D Diag Mammo W/Cad GIOVANNA Bilateral CC and MLO view(s) were taken. Prior study comparison: January 17, 2021, left breast MG 3d diag mammo w/cad LT. July 12, 2020, bilateral MG 3d screening mammo w/cad. The breast tissue is heterogeneously dense. This may lower the sensitivity of mammography. There is chronic nodularity bilaterally. There is no dominant lesion. No significant new findings when compared with previous films. These results were verbally communicated with the patient and result sheet given to the patient on 08/07/21. ASSESSMENT: Benign, BI-RAD 2 RECOMMENDATION: Routine screening mammogram of both breasts in 1 year.
== END | disposition home or self-care (01) ==
LOC: RADMAMWWP 12:40
PROVIDERS: ATTEND Family Medicine
DX: R92.8 Other abnormal and inconclusive findings on diagnostic imaging of breast (principal); Z78.0 Asymptomatic menopausal state
CPT/HCPCS: 77066; G0279; 77062

== ENCOUNTER → 2021-10-02 | Outpatient (CLI) | payer MEDICARE | END | disposition home or self-care (01) | LOC: LABWHC1 10:04 | PROVIDERS: ATTEND Nurse Practitioner Family | DX: R00.2 Palpitations (principal) | CPT/HCPCS: 36415; 93005 ==

== ENCOUNTER → 2021-11-12 | Outpatient (CLI) | payer MEDICARE ==
--- NOTE | 2021-12-18 10:45 | P.HOLTER ---
This is a report on the 72 hour Holter monitor. Baseline EKG showed sinus rhythm. Average heart rate is 72 with a minimal 53 and maximum 119. Patient had occasional APCs and occasional PVCs. Patient had one run of nonsustained V. tach. V. tach consisting of 5 beats. Short burst of SVT also noted. Patient did not report her cardiac symptoms of did not maintain a diary. #1. Sinus rhythm. #2. Occasional APCs with recurrence of SVT #3. Occasional PVCs #4. One episode of nonsustained V. tach consisting of 5 beats 6. Patient did not maintain a diary
--- NOTE | 2021-12-19 10:42 | HM ---
This is a report on the 72 hour Holter monitor. Baseline EKG showed sinus rhythm. Average heart rate is 72 with a minimal 53 and maximum 119. Patient had occasional APCs and occasional PVCs. Patient had one run of nonsustained V. tach. consisting of 5 beats. Short burst of SVT also noted. Patient did not report her cardiac symptoms and did not maintain a diary. #1. Sinus rhythm. #2. Occasional APCs with short runs of SVT #3. Occasional PVCs #4. One episode of nonsustained V. tach consisting of 5 to 6. Patient did not maintain a diary MTDD
== END | disposition home or self-care (01) ==
LOC: RADECHMAIN 11:53
PROVIDERS: ATTEND Family Medicine
DX: I47.1 Supraventricular tachycardia (principal); I49.3 Ventricular premature depolarization
CPT/HCPCS: 93225; 93226

== ENCOUNTER → 2021-12-20 | Day surgery (SDC) | payer MEDICARE ==
[2021-12-18 11:52] VITALS: BMI 33.4
[~2021-12-20] MED LIST changes: -DEXAMETHASONE SOD PHOSPHATE 10 MG/ML 1 ML VIAL IV ONE; -HYDROmorphone 0.5 MG/0.5 ML SYRINGE IVP PRN; +LIDOCAINE 1% (10MG/ML) FOR IV START INTRADERMA PRN; -MIDAZOLAM (PF) 2 MG/2 ML VIAL IV PRN; -ONDANSETRON 4 MG/2 ML VIAL IVP ONE; +PROPOFOL 10 MG/ML 20 ML VIAL IV ONE; -Pre Op ABX Message 1 EACH MISC MISCELLANE ONE
[2021-12-20 10:01] VITALS: RESP 16
--- NOTE | 2021-12-20 10:24 | P.PCN ---
Date of Procedure: 12/20/21 Preoperative Diagnosis: Screening Postoperative Diagnosis: Transverse colon polyp Diverticulosis Procedure(s) Performed: Colonoscopy with forcep polypectomy Anesthesia: MAC Surgeon: Zoie Macias Pathology: other (Transverse colon polyp) Condition: stable Disposition: same day Indications for Procedure: 71-year-old female presents for screening colonoscopy. Last colonoscopy was about 10 years ago. Risks, benefits and alternatives were provided. Operative Findings: Transverse colon polyp diverticulosis Description of Procedure: The patient was brought into the endoscopy suite and placed in left lateral decubitus position and adequate sedation was achieved using conscious sedation. A digital rectal exam was performed and mild internal hemorrhoids were palpated. An endoscope was then placed in the rectum and advanced to the cecum as iden tified by landmarks including the appendiceal orifice and the ileocecal valve. The prep was good. The colonoscope was then slowly withdrawn, examining for any mucosal abnormality. The cecum, ascending, transverse, descending and sigmoid colon were visualized adequately. There were no large neoplastic lesions throughout the colon. A small polyp was noted in the transverse colon. This was removed with forceps polypectomy. Hemostasis was maintained. Mild amount of diverticulosis was noted scattered throughout the sigmoid colon. Retroflexion was performed in the rectum and internal hemorrhoids were visible. Excess air was removed, the colonoscope withdrawn and the procedure terminated. The patient was then transferred to the recovery unit in stable condition. Repeat colonoscopy should be performed in 3 years.
[2021-12-20 10:27] VITALS: TEMP 98
[2021-12-20 10:49] VITALS: PULSE 72
[2021-12-20 11:12] VITALS: BP 154/88
== END | disposition home or self-care (01) ==
LOC: ORWHC2ENDO 09:17
PROVIDERS: ATTEND Surgery
DX: Z12.11 Encounter for screening for malignant neoplasm of colon (principal); D12.3 Benign neoplasm of transverse colon; K57.30 Diverticulosis of large intestine without perforation or abscess without bleeding; K64.8 Other hemorrhoids; I34.1 Nonrheumatic mitral (valve) prolapse; I10 Essential (primary) hypertension; E78.5 Hyperlipidemia, unspecified; Z79.899 Other long term (current) drug therapy; Z79.82 Long term (current) use of aspirin
CPT/HCPCS: 88305; 45380; J2704

== ENCOUNTER → 2022-08-08 | Outpatient (CLI) | payer MEDICARE ==
--- NOTE | 2022-08-11 08:32 | MM ---
Reason for Exam: Screening (asymptomatic). Last screening mammogram was performed 12 month(s) ago. Patient History: Menarche at age 13. First Full-Term at age 27. Left ovary removed at age 62. Right ovary removed at age 62. Hysterectomy at age 62. Postmenopausal. Patient has history of breast feeding. Other cancer, age 69. Sister had breast cancer, age 68. Risk Values: Elsa 5 year model risk: 3.4%. NCI Lifetime model risk: 9.3%. Prior Study Comparison: 07/12/2020 Bilateral Screening Mammogram, [facility]. 01/17/2021 Left Diagnostic Mammogram, [facility]. 08/07/2021 Bilateral Diagnostic Mammogram, [facility]. Tissue Density: The breast tissue is heterogeneously dense. This may lower the sensitivity of mammography. Findings: Analyzed By CAD. There are stable scattered and grouped benign-appearing calcifications bilaterally. There is stable asymmetric prominent tissue mimicking distortion bilaterally. Stable Round and oval circumscribed masses are redemonstrated bilaterally consistent with fibrocystic changes again seen. There is no suspicious new group of microcalcifications or new suspicious mass in either breast. Overall Assessment: Benign, BI-RAD 2 Management: Screening Mammogram of both breasts in 1 year. A clinical breast exam by your physician is recommended on an annual basis and results should be correlated with mammographic findings. Electronically signed and approved by: Ollie Dial M.D.
== END | disposition home or self-care (01) ==
LOC: RADMAMWWP 12:26
PROVIDERS: ATTEND Family Medicine
DX: Z12.31 Encounter for screening mammogram for malignant neoplasm of breast (principal); Z78.0 Asymptomatic menopausal state; Z80.3 Family history of malignant neoplasm of breast
CPT/HCPCS: 77063; 77067

== ENCOUNTER → 2023-07-22 | Outpatient (CLI) | payer MEDICARE ==
--- NOTE | 2023-07-22 12:24 | XR ---
EXAMINATION TYPE: XR Hip Bilateral Complete DATE OF EXAM: 07/22/2023 COMPARISON: None HISTORY: Bilateral hip pain TECHNIQUE: Two-view bilateral hips FINDINGS: Right femoral head articulates with the acetabulum. Joint space is preserved. No acute fracture or di slocation is evident. Left femoral head articulates with the acetabulum. Minimal joint space narrowing is present. No acute fracture or dislocation. IMPRESSION: 1. Mild degenerative change left hip
== END | disposition home or self-care (01) ==
LOC: RADXRMAIN 11:39
PROVIDERS: ATTEND Family Medicine
DX: M16.12 Unilateral primary osteoarthritis, left hip (principal)
CPT/HCPCS: 73521

== ENCOUNTER 2023-08-03 05:18 | Emergency (ER) | payer MEDICARE ==
[2023-08-03 05:39] VITALS: RESP 18; TEMP 97.4
--- NOTE | 2023-08-03 06:25 | ED ---
Lower Extremity Injury HPI - General Chief Complaint: Extremity Injury, Lower Stated Complaint: R Knee Pain Time Seen by Provider: 08/03/23 06:04 Source: patient, RN notes reviewed Mode of arrival: wheelchair Limitations: no limitations - History of Present Illness Initial Comments: 72-year-old female presents emergency Department which went right knee pain. Patient states she's been having some pain with states that she was walking this morning felt a pop to her right knee she states she has extreme pain with ambulation states that there is minimal pain at rest. Denies any falls. Denies any prior surgeries no paresthesias no weakness. - Related Data Home Medications Medication Instructions Recorded Confirmed Simvastatin [Zocor] 20 mg PO DAILY 03/18/15 12/18/21 Aspirin [Adult Low Dose Aspirin EC] 81 mg PO DAILY 08/15/15 12/18/21 Cholecalciferol [Vitamin D3 (25 25 mcg PO DAILY 08/15/15 12/20/21 Mcg = 1000 Iu)] Magnesium 400 mg PO DAILY 08/15/15 12/18/21 Calcium Carbonate [Calcium] 600 mg PO DAILY 04/10/17 12/18/21 Lisinopril-Hctz 10-12.5 mg 1 tab PO DAILY 02/17/21 12/20/21 [Zestoretic 10-12.5] Allergies Allergy/AdvReac Type Severity Reaction Status Date / Time No Known Allergies Allergy Verified 12/20/21 09:41 Review of Systems ROS Statement: Those systems with pertinent positive or pertinent negative responses have been documented in the HPI. ROS Other: All systems not noted in ROS Statement are negative. Past Medical History Past Medical History: Cancer, Hyperlipidemia, Hypertension, Mitral Valve Prolapse (MVP) Additional Past Medical History / Comment(s): hx skin cancer History of Any Multi-Drug Resistant Organisms: None Reported Past Surgical History: Hysterectomy, Orthopedic Surgery Additional Past Surgical History / Comment(s): arthroscopy lt knee Past Anesthesia/Blood Transfusion Reactions: No Reported Reaction Past Psychological History: No Psychological Hx Reported Smoking Status: Never smoker Past Alcohol Use History: Rare Past Drug Use History: None Reported - Past Family History Father Family Medical History: Cancer, Deep Vein Thrombosis (DVT) General Exam Limitations: no limitations General appearance: alert, in no apparent distress Head exam: Present: atraumatic, normocephalic, normal inspection Respiratory exam: Present: normal lung sounds bilaterally. Absent: respiratory distress, wheezes, rales, rhonchi, stridor Cardiovascular Exam: Present: regular rate, normal rhythm, normal heart sounds. Absent: systolic murmur, diastolic murmur, rubs, gallop, clicks Extremities exam: Present: other (Right knee there is no cervical swelling, no laxity noted there is pain with varus, neurovascular intact there is mild lateral knee tenderness) Neurological exam: Present: reflexes normal. Absent: motor sensory deficit Course Vital Signs 08/03/23 08/03/23 05:19 07:13 Temperature 97.4 F L Pulse Rate 75 78 Respiratory 18 18 Rate Blood Pressure 167/80 155/98 O2 Sat by Pulse 99 96 Oximetry Medical Decision Making - Medical Decision Making Was pt. sent in by a medical professional or institution (LEO Hawkins, STATEMENT DISTRIBUTION CLERK, urgent care, hospital, or alf...) When possible be specific @ -No Did you speak to anyone other than the patient for history (EMS, parent, family, police, friend...)? What history was obtained from this source @ -No Did you review nursing and triage notes (agree or disagree)? Why? @ -I reviewed and agree with nursing and triage notes Were old charts reviewed (outside hosp., previous admission, EMS record, old EKG, old radiological studies, urgent care reports/EKG's, alf records)? Report findings @ -No old charts were reviewed Differential Diagnosis (chest pain, altered mental status, abdominal pain women, abdominal pain men, vaginal bleeding, weakness, fever, dyspnea, syncope, headache, dizziness, GI bleed, back pain, seizure, CVA, palpatations, mental health, musculoskeletal)? @ -[Knee pain, knee sprain, meniscus injury, EKG interpreted by me (3pts min.). @ -None X-rays interpreted by me (1pt min.). @ -X-ray right knee showing is soft tissue swelling, suprapatellar knee effusion CT interpreted by me (1pt min.). @ -None done U/S interpreted by me (1pt. min.). @ -None done What testing was considered but not performed or refused? (CT, X-rays, U/S, labs)? Why? @ -None What meds were considered but not given or refused? Why? @ -None Did you discuss the management of the patient with other professionals (professionals i.e. , PA, STATEMENT DISTRIBUTION CLERK, lab, RT, psych nurse, social services counselor, harness placer, teacher, nursing officer, telehealth case manager)? Give summary @ -No Was smoking cessation discussed for >3mins.? @ -No Was critical care preformed (if so, how long)? @ -No Were there social determinants of health that impacted care today? How? (Homelessness, low income, unemployed, alcoholism, drug addiction, transportation, low edu. Level, literacy, decrease access to med. care, long term, rehab)? @ -No Was there de-escalation of care discussed even if they declined (Discuss DNR or withdrawal of care, Hospice)? DNR status @ -No What co-morbidities impacted this encounter? (DM, HTN, Smoking, COPD, CAD, Cancer, CVA, ARF, Chemo, Hep., AIDS, mental health diagnosis, sleep apnea, morbid obesity)? @ -None Was patient admitted / discharged? Hospital course, mention meds given and route, prescriptions, significant lab abnormalities, going to OR and other pertinent info. @ -[Discharged x-ray shows soft tissue swelling is concern for LCL injury versus meniscus injury. Patient does have soft tissue swelling and effusion. Patient placed in knee immobilizer was given prescription for walker to remain partial weightbearing follow up with orthopedics. Undiagnosed new problem with uncertain prognosis? @ -No Drug Therapy requiring intensive monitoring for toxicity (Heparin, Nitro, Insulin, Cardizem)? @ -No Were any procedures done? @ -No Diagnosis/symptom? @ -[Knee effusion, knee strain Acute, or Chronic, or Acute on Chronic? @ -[Acute Uncomplicated (without systemic symptoms) or Complicated (systemic symptoms)? @ -[Uncomplicated Side effects of treatment? @ -No Exacerbation, Progression, or Severe Exacerbation? @ -No Poses a threat to life or bodily function? How? (Chest pain, [place], [place], pneumonia, PE, COPD, DKA, ARF, appy, cholecystitis, CVA, Diverticulitis, Homicidal, Suicidal, threat to staff... and all critical care pts) @ -No Disposition Clinical Impression: Strain of knee and leg, right, Knee effusion, right Disposition: HOME SELF-CARE Condition: Stable Instructions (If sedation given, give patient instructions): Knee Sprain (ED), Knee Pain (ED) Additional Instructions: Please return to the Emergency Department if symptoms worsen or any other concerns. Is patient prescribed a controlled substance at d/c from ED?: No Referrals: Slim Munoz MD [Primary Care Provider] - 1-2 days Gumaro Tobar MD [STAFF PHYSICIAN] - 1-2 days Time of Disposition: 07:18
--- NOTE | 2023-08-03 06:36 | XR ---
EXAM: XR Right Knee, 3 Views CLINICAL HISTORY: Pain TECHNIQUE: Three views of the right knee. COMPARISON: No relevant prior studies available. FINDINGS: Bones/joints: Mild narrowing of the medial tibiofemoral compartment with associated bony productive changes suggesting mild osteoarthropathy. Small suprapatellar knee joint effusion. Superior and inferior patellar enthesophytes. Tibial tuberosity enthesophyte also noted. No evidence of acute fracture or dislocation. Soft tissues: Diffuse soft tissue swelling. IMPRESSION: 1. No evidence of acute fracture or dislocation. 2. Diffuse soft tissue swelling. 3. Mild osteoarthropathy. 4. Small suprapatellar knee joint effusion.
[2023-08-03 07:16] VITALS: PULSE 78
[2023-08-03 07:40] VITALS: BP 155/98
== END 2023-08-03 07:47 | disposition home or self-care (01) ==
LOC: EC 05:18
DX: S86.911A Strain of unspecified muscle(s) and tendon(s) at lower leg level, right leg, initial encounter (principal); M25.461 Effusion, right knee; I10 Essential (primary) hypertension; E78.5 Hyperlipidemia, unspecified; Z79.82 Long term (current) use of aspirin; Z79.899 Other long term (current) drug therapy; X50.9XXA Other and unspecified overexertion or strenuous movements or postures, initial encounter; Y93.01 Activity, walking, marching and hiking
CPT/HCPCS: 73562; 99283; L1830

== ENCOUNTER → 2023-08-10 | Outpatient (CLI) | payer MEDICARE ==
--- NOTE | 2023-08-10 18:44 | BD ---
EXAMINATION TYPE: Axial Bone Density DATE OF EXAM: 08/10/2023 CLINICAL HISTORY: 72 years old Female. ICD-10 CODE: Z78.0 ASYMPTOMATIC MENOPAUSAL STA Height: 66in Weight: 228lb FRAX RISK QUESTIONS: Secondary Osteoporosis: 3. Menopause before 45: yes RISK FACTORS HISTORY OF: MEDICATIONS: EXAM MEASUREMENTS: Bone mineral densitometry was performed using the SQMOS System. Bone mineral density as measured about the Lumbar spine is: ----- L1-L4(G/cm2): 1.370 T Score Values are as follows: ----- L1: 0.5 ----- L2: 1.1 ----- L3: 1.6 ----- L4: 2.5 ----- L1-L4: 1.6 Z Score Values are as follows: ----- L1: 1.1 ----- L2: 1.6 ----- L3: 2.2 ----- L4: 3.1 ----- L1-L4: 2.1 previous study of 09-23-18 unavailable Bone mineral density about the R hip (g/cm2): 1.203 Bone mineral density about the L hip (g/cm2): 1.176 T Score values are as follows: -----R Neck: 1.4 -----L Neck: 0.7 -----R Total: 1.6 -----L Total: 1.3 Z Score values are as follows: -----R Neck: 2.5 -----L Neck: 1.7 -----R Total: 2.3 -----L Total: 2.1 Bone mineral density has: Increased 2.3% since study of: 08-21-10 FRAX%s: The graph provided illustrates a 5.8% chance for a major osteoporotic fx and a 0.2% chance fo r the hips probability for fx in 10 years time. IMPRESSION: Normal (Values between +1 and -1 indicate normal bone mass). Consider repeating this study in 5 year s or sooner if there is some new clinical indication. NOTE: T-SCORE=SD OF THE YOUNG ADULT MEAN.
--- NOTE | 2023-08-11 08:12 | MM ---
Reason for Exam: Screening (asymptomatic). Last screening mammogram was performed 12 month(s) ago. Patient History: Menarche at age 13. First Full-Term at age 27. Left ovary removed at age 62. Right ovary removed at age 62. Hysterectomy at age 62. Postmenopausal. Patient has history of breast feeding. Sister had breast cancer, age 68. Risk Values: Elsa 5 year model risk: 3.5%. NCI Lifetime model risk: 8.8%. Prior Study Comparison: 01/17/2021 Left Diagnostic Mammogram, [facility]. 08/07/2021 Bilateral Diagnostic Mammogram, [facility]. 08/08/2022 Bilateral MG 3D screening mammo w/cad, [facility]. Tissue Density: The breast tissue is heterogeneously dense. This may lower the sensitivity of mammography. Findings: Analyzed By CAD. Increasing nodularity upper outer left breast. Additional views and ultrasound recommended. Scattered benign-appearing calcifications seen bilaterally. Overall Assessment: Incomplete: need additional imaging evaluation, BI-RAD 0 Management: Diagnostic Mammogram of the left breast. . Patient should continue monthly self-breast exams. A clinical breast exam by your physician is recommended on an annual basis. This exam should not preclude additional follow-up of suspicious palpable abnormalities. Note on Elsa scores and lifetime risk: 1. A Elsa score greater than 3% is considered moderate risk. If this is the case, consider specialist referral to assess eligibility for a risk reducing agent. 2. If overall lifetime risk for the development of breast cancer is 20% or higher, the patient may qualify for future screening with alternating mammogram and breast MRI. Electronically signed and approved by: Adi Grady M.D. Radiologis
== END | disposition home or self-care (01) ==
LOC: RADMAMWWP 14:39
PROVIDERS: ATTEND Family Medicine
DX: Z12.31 Encounter for screening mammogram for malignant neoplasm of breast (principal); Z80.3 Family history of malignant neoplasm of breast; Z78.0 Asymptomatic menopausal state
CPT/HCPCS: 77063; 77067; 77080

== ENCOUNTER → 2023-08-12 | Outpatient (CLI) | payer MEDICARE ==
--- NOTE | 2023-08-12 07:46 | MM ---
Reason for Exam: Additional evaluation requested from abnormal screening. Last screening mammogram was performed less than 1 month ago. Patient History: Menarche at age 13. First Full-Term at age 27. Left ovary removed at age 62. Right ovary removed at age 62. Hysterectomy at age 62. Postmenopausal. Patient has history of breast feeding. Sister had breast cancer, age 68. Risk Values: Elsa 5 year model risk: 3.5%. NCI Lifetime model risk: 8.8%. Prior Study Comparison: 08/07/2021 Bilateral Diagnostic Mammogram, [facility]. 08/08/2022 Bilateral MG 3D screening mammo w/cad, [facility]. 08/10/2023 Bilateral MG 3D screening mammo w/cad, [facility]. Tissue Density: Left: The breast tissue is heterogeneously dense. This may lower the sensitivity of mammography. Findings: Analyzed By CAD. Persistent nodularity upper outer left breast. Ultrasound recommended. Overall Assessment: Incomplete: need additional imaging evaluation, BI-RAD 0 Management: Diagnostic Breast Ultrasound of the left breast. . Results were given to the patient verbally at the time of exam. Patient should continue monthly self-breast exams. A clinical breast exam by your physician is recommended on an annual basis. This exam should not preclude additional follow-up of suspicious palpable abnormalities. Note on Elsa scores and lifetime risk: 1. A Elsa score greater than 3% is considered moderate risk. If this is the case, consider specialist referral to assess eligibility for a risk reducing agent. 2. If overall lifetime risk for the development of breast cancer is 20% or higher, the patient may qualify for future screening with alternating mammogram and breast MRI. Electronically signed and approved by: Adi Grady M.D. Radiologis
--- NOTE | 2023-08-12 08:17 | USB ---
Reason for Exam: Additional evaluation requested from abnormal screening. Patient History: Menarche at age 13. First Full-Term at age 27. Left ovary removed at age 62. Right ovary removed at age 62. Hysterectomy at age 62. Postmenopausal. Patient has history of breast feeding. Sister had breast cancer, age 68. Risk Values: Elsa 5 year model risk: 3.5%. NCI Lifetime model risk: 8.8%. Technique: Method: Targeted. Prior Study Comparison: 08/07/2021 Bilateral Diagnostic Mammogram, [facility]. 08/08/2022 Bilateral MG 3D screening mammo w/cad, [facility]. 08/10/2023 Bilateral MG 3D screening mammo w/cad, [facility]. Findings: The upper outer quadrant of the left breast, the axilla of the left breast and the retroareolar of the left breast were scanned. Multiple simple cysts are seen in the upper outer quadrant largest measuring 1 cm x 0.5 cm at the 2:00 position. No solid masses are seen.. Overall Assessment: Benign, BI-RAD 2 Management: Screening Mammogram of both breasts in 1 year. A clinical breast exam by your physician is recommended on an annual basis and results should be correlated with mammographic findings. This exam should not preclude additional follow-up of suspicious palpable abnormalities. Results were given to the patient verbally at the time of exam. Electronically signed and approved by: Adi Grady M.D. Radiologis
== END | disposition home or self-care (01) ==
LOC: RADMAMWWP 07:21
PROVIDERS: ATTEND Family Medicine
DX: N60.02 Solitary cyst of left breast (principal); R92.332 Mammographic heterogeneous density, left breast; Z80.3 Family history of malignant neoplasm of breast; Z78.0 Asymptomatic menopausal state
CPT/HCPCS: 77065; 76642; G0279; 77061

== ENCOUNTER → 2023-09-24 | Outpatient (CLI) | payer MEDICARE ==
--- NOTE | 2023-09-24 11:33 | CA ---
Exercise Stress Test Report Name: Nora Reyes Exam Date: 09/24/2023 08:51 Exam Location: [place] Stress Ht (in): 68 Wt (lb): 230 BSA: 2.17 Ordering Phys: Slim Munoz MD Referring Phys: Slim Munoz MD Technologist: DWAYNE DAVID Age: 73 Gender: F : 1950 Procedure CPT: Indications: R06.09 Other forms of dyspnea ICD-10 Codes: Patient History: Medications: LISINOPRIL, SIMVASTATIN, HYDROCHLOROTHIAZIDE Meds past 24 hrs: Pretest Chest Pain: STRESS TEST Hernan Protocol Exercise Duration (min:sec): 03:[address] Depressions (mm): Angina Score: Suarez Score: Resting HR (bpm): 75 Peak HR (bpm): 129 Resting BP (mmHg): 138 / 84 Peak BP (mmHg): 205 / 79 MPHR: 147 Target HR: 125 % MPHR: 88 METS: 6.2 Total Dose: Peak Dose: Atropine: Double Product: 95754 BP Response: Stress Termination: Reached target heart rate Stress Symptoms: No chest pain or symptoms Stress Summary: ECG ANALYSIS Resting ECG: Stress ECG: CONCLUSIONS Poor exercise tolerance The patient exercised only for 4 minutes Normal electrocardiogram in response to exercise Dr. Mac Macias MD (Electronically Signed) Final Date: 24 September 2023 11:32
== END | disposition home or self-care (01) ==
LOC: RADNMMAIN 08:32
PROVIDERS: ATTEND Family Medicine
DX: R06.09 Other forms of dyspnea (principal)
CPT/HCPCS: 93017

== ENCOUNTER → 2023-11-04 | Outpatient (CLI) | payer MEDICARE ==
[2023-11-04 15:06] LABS: Basophils # (A) 0.05 X 10*3/uL (0.00-0.10); Basophils % (A) 0.8 %; Eosinophils # (A) 0.09 X 10*3/uL (0.04-0.35); Eosinophils % (A) 1.4 %; HCT 36.8 % (37.2-46.3); HGB 11.2 g/dL (12.0-15.0); Lymphocytes # (A) 1.54 X 10*3/uL (0.90-5.00); Lymphocytes % (A) 24.2 %; MCH 24.4 pg (27.0-32.0); MCHC 30.4 g/dL (32.0-37.0); MCV 80.2 FL (80.0-97.0); NRBC Per 100 WBC 0 X 10*3/uL (0.00-0.01); Neutrophils # (A) 3.97 X 10*3/uL (1.80-7.70); Neutrophils % (A) 62.3 %; Platelet Count 296 X 10*3/uL (140-440); RBC 4.59 X 10*6/uL (4.10-5.20); RDW 15.7 % (11.5-14.5); WBC 6.37 X 10*3/uL (4.50-10.00)
== END | disposition home or self-care (01) ==
LOC: LABPAT 11:11
PROVIDERS: ATTEND Surgery
DX: Z01.812 Encounter for preprocedural laboratory examination (principal)
CPT/HCPCS: 85025; 86850; 86900; 86901; 93005

== ENCOUNTER 2023-11-16 06:00 | Day surgery (SDC) | payer MEDICARE ==
[2023-11-11 16:06] VITALS: BMI 34.2
[2023-11-16] MEDS: LACTATED RINGERS 1,000 ML IV SCH (06:38)
[2023-11-16] MEDS ORDERED: HYDROmorphone 0.5 MG/0.5 ML SYRINGE IVP PRN (07:00)
[2023-11-16] MEDS: ACETAMINOPHEN TAB 500 MG TAB PO PRN (07:11)
[2023-11-16] MEDS: ONDANSETRON 4 MG/2 ML VIAL IVP ONE (07:11)
[2023-11-16] MEDS: DEXAMETHASONE SOD PHOSPHATE 4 MG/ML 1 ML VIAL IVP ONE (07:11)
[2023-11-16] MEDS: HEPARIN SODIUM,PORCINE 5,000 UNIT/ML 1 ML VIAL SQ PRN (07:11)
[2023-11-16] MEDS ORDERED: GLYCOPYRROLATE 0.2 MG/ML 2 ML VIAL ONE (07:26)
[2023-11-16] MEDS ORDERED: NEOSTIGMINE 1 MG/ML 10 ML VIAL ONE (07:26)
[2023-11-16] MEDS ORDERED: KETOROLAC 15 MG/ML 1 ML VIAL ONE (07:26)
[2023-11-16] MEDS ORDERED: ePHEDrine 50 MG/ML 1 ML VIAL ONE (07:26)
[2023-11-16] MEDS ORDERED: fentaNYL (PF) 50 MCG/ML 2 ML AMP ONE (07:26)
[2023-11-16] MEDS ORDERED: SUCCINYLCHOLINE CHLORIDE 200 MG/10 ML VIAL IV ONE (07:26)
[2023-11-16] MEDS ORDERED: LIDOCAINE 1% INJ 10MG/ML (20 ML MDV) ONE (07:26)
[2023-11-16] MEDS ORDERED: PROPOFOL 10 MG/ML 20 ML VIAL IV ONE (07:26)
[2023-11-16] MEDS ORDERED: MIDAZOLAM 2 MG/2 ML VIAL ONE (07:26)
[2023-11-16] MEDS ORDERED: ROCURONIUM 10 MG/ML (5 ML VIAL) IV ONE (07:26)
[2023-11-16] MEDS ORDERED: PHENYLEPHRINE 10 MG/ML VIAL ONE (07:26)
[2023-11-16 07:31] VITALS: RESP 16
[2023-11-16] MEDS: BUPIVACAINE (PF) 0.25% 30 ML VIAL SQ ONE ×2 (08:00)
[2023-11-16] MEDS: LACTATED RINGERS 1,000 ML IV ONE (09:03)
--- NOTE | 2023-11-16 09:21 | P.OP ---
Date of Procedure: 11/16/23 Procedure(s) Performed: PREOPERATIVE DIAGNOSIS: Left inguinal hernia POSTOPERATIVE DIAGNOSIS: Same PROCEDURE: Laparoscopic da Patito assisted repair left inguinal hernia with mesh SURGEON: Dr. Luna ANESTHESIA: General OPERATIVE PROCEDURE DETAILS: Patient was placed in the operating table in the supine position. The patient was placed under general anesthesia. The abdomen was prepped and draped in usual sterile fashion. A small curvilinear supraumbilical incision was made. The fascia was retracted anteriorly with Angel forceps. The Veress needle was inserted. The saline drop test was normal. Insufflation took place to 15 mmHg. An 8 mm trocar was placed into the peritoneal cavity. 2 additional 8 mm trochars were placed in the right upper quadrant and left upper quadrant under visualization. The robotic arms were then brought in and docked into place. The fenestrated bipolar was used in the left arm and the laparoscopic tor was utilized in the right arm. A 30 8 mm scope was used in the up position. The peritoneal cavity was inspected. The patient had a indirect hernia on the left. No hernia was seen on the right. The peritoneum was incised in a horizontal fashion cephalad to the internal inguinal ring. Following that careful dissection of the preperitoneal space took place. This took place using both electrocautery, sharp dissection but primarily blunt dissection. Visualization of the pubic tubercle and Eren's ligament took place medially. Full dissection took place laterally as well. The hernia sac was fully dissected. There was no visible cord lipoma penetrating through the internal inguinal ring. The round ligament was divided using 2 separate da Patito clips. Once we had adequate space the [id number] Progrip mesh was advanced into the preperitoneal space and flattened out appropriately to cover all potential hernia sites. No sutures were used. The peritoneal defect was then closed using a absorbable 2-0 VLok suture. The hernia sac was incorporated into the peritoneal closure to help prevent future recurrence. The pneumoperitoneum was then evacuated. The skin of all 3 sites was closed using a 4-0 Monocryl stitch. Skin glue was then applied. TYPE OF MESH USED: ProGrip LOCATION OF MESH: Sublay/preperitoneal FIXATION: Absorbable 3 oh V-Loc PREOPERATIVE DISCUSSION ON SMOKING CESSASTION: Yes PREOPERATIVE DISCUSSION ON MORBID OBESITY: Yes PREOPERATIVE DISCUSSION ON APPROPRIATE USE OF NARCOTIC USE: Yes PREOPERATIVE EDUCATION: Multi Modal, Smoking Cessation and Weight Loss with BMI over 35. DISPOSITION: Stable to recovery room
[2023-11-16 09:48] VITALS: TEMP 96.8
[2023-11-16 11:19] VITALS: BP 127/74; PULSE 65
[2023-11-16] MEDS ORDERED: ACETAMINOPHEN TAB 325 MG TAB PO SCH (13:00)
[2023-11-16] MEDS ORDERED: IBUPROFEN 600 MG TAB PO SCH (16:00)
== END 2023-11-16 11:39 | disposition home or self-care (01) ==
LOC: OR 06:00
PROVIDERS: ATTEND Surgery
DX: K40.90 Unilateral inguinal hernia, without obstruction or gangrene, not specified as recurrent (principal); I10 Essential (primary) hypertension; K21.9 Gastro-esophageal reflux disease without esophagitis; E78.00 Pure hypercholesterolemia, unspecified; E66.01 Morbid (severe) obesity due to excess calories; Z68.34 Body mass index [BMI] 34.0-34.9, adult; Z79.899 Other long term (current) drug therapy
CPT/HCPCS: 49650; S2900

== ENCOUNTER → 2024-06-24 | Outpatient (CLI) | payer MEDICARE ==
--- NOTE | 2024-06-24 13:03 | US ---
EXAMINATION TYPE: US carotid duplex BILAT DATE OF EXAM: 06/24/2024 COMPARISON: 10/06/17 CLINICAL INDICATION: Female, 73 years old with history of E78.5 HYPERLIPIDEMIA; near syncope Additional History: R55 Syncope TECHNIQUE: Grayscale, color Doppler and spectral Doppler evaluation of the bilateral carotid systems and vertebral arteries. Indirect Doppler criteria was utilized. FINDINGS: EXAM MEASUREMENTS: RIGHT: Peak Systolic Velocity (PSV) cm/sec ----- Right CCA: 80.2 ----- Right ICA: 75.5 ----- Right ECA: 89.7 ICA/CCA ratio: 0.94 RIGHT: End Diastole cm/sec ----- Right CCA: 17.8 ----- Right ICA: 65.1 ----- Right ECA: 9.4 LEFT: Peak Systolic Velocity (PSV) cm/sec ----- Left CCA: 76.6 ----- Left ICA: 84.1 ----- Left ECA: 99.6 ICA/CCA ratio: 1.1 LEFT: End Diastole cm/sec ----- Left CCA: 15.0 ----- Left ICA: 25.4 ----- Left ECA: 10.8 VERTEBRALS (direction of flow): Right Vertebral: Antegrade Left Vertebral: Antegrade Rhythm: Normal ORTHOPEDIC RN NOTES: small amount of plaque seen bilaterally in bulbs. no elevated velocities seen Color Doppler imaging shows patency with blood flow throughout the carotid artery. Spectral waveforms are within normal limits. IMPRESSION: Right: No hemodynamically significant stenosis. Left: No hemodynamically significant stenosis. Criteria for Assigning % of Stenosis / Diameter reduction (Estimation based on the indirect measurements of the internal carotid artery velocities (ICA PSV). 1. Normal (no stenosis)=ICA PSV < 125 cm/s: ratio < 2.0: ICA EDV<40 cm/s. 2. Less than 50% stenosis=ICA PSV < 125 cm/s: ratio < 2.0: ICA EDV<40 cm/s. 3. 50 to 69% stenosis=ICA PSV of 125 to 230 cm/s: ration 2.0 ? 4.0: ICA EDV 40-100 cm/s. 4. Greater than 70% stenosis to near occlusion= ICA PSV > 230 cm/s: ratio > 4.0: ICA EDV > 100 cm/s. 5. Near occlusion= ICA PSV velocities may be low or undetectable: variable ratio and ICA EDV. 6. Total occlusion=unable to detect flow. [facility], , 06/24/2024 1:01 PM
== END | disposition home or self-care (01) ==
LOC: RADUSWWP 12:30
PROVIDERS: ATTEND Family Medicine
DX: E78.5 Hyperlipidemia, unspecified (principal)
CPT/HCPCS: 93880

== ENCOUNTER → 2024-09-14 | Outpatient (CLI) | payer MEDICARE ==
--- NOTE | 2024-09-14 17:19 | MM ---
Reason for Exam: Screening (asymptomatic). Last mammogram was performed 1 year(s) and 2 month(s) ago. Patient History: Menarche at age 13. First Full-Term at age 27. Left ovary removed at age 62. Right ovary removed at age 62. Hysterectomy at age 62. Postmenopausal. Patient has history of breast feeding. Sister had breast cancer, age 68. Risk Values: Elsa 5 year model risk: 3.5%. NCI Lifetime model risk: 7.9%. Prior Study Comparison: 08/08/2022 Bilateral MG 3D screening mammo w/cad, [facility]. 08/10/2023 Bilateral MG 3D screening mammo w/cad, [facility]. 08/12/2023 Left MG 3D work up w/cad , [facility]. Tissue Density: The breasts are heterogeneously dense, which may obscure small masses. Findings: Analyzed By CAD. Underlying chronic nodularity, which becomes more apparent on 3-D images. Scattered benign punctate calcifications. There is no suspicious group of microcalcifications or new suspicious mass in either breast. Overall Assessment: Benign, BI-RAD 2 Management: Screening Mammogram of both breasts in 1 year. See note below in regards to the patient's increased 5 year Elsa score. Patient should continue monthly self-breast exams. A clinical breast exam by your physician is recommended on an annual basis. This exam should not preclude additional follow-up of suspicious palpable abnormalities. Note on Elsa scores and lifetime risk: 1. A Elsa score greater than 3% is considered moderate risk. If this is the case, consider specialist referral to assess eligibility for a risk reducing agent. 2. If overall lifetime risk for the development of breast cancer is 20% or higher, the patient may qualify for future screening with alternating mammogram and breast MRI. [facility], , 09/14/2024 5:16 PM. Electronically signed and approved by: Maggie Chung M.D. Radiologist
== END | disposition home or self-care (01) ==
LOC: RADMAMWWP 11:27
PROVIDERS: ATTEND Family Medicine
DX: Z12.31 Encounter for screening mammogram for malignant neoplasm of breast (principal); R92.333 Mammographic heterogeneous density, bilateral breasts; Z78.0 Asymptomatic menopausal state; Z80.3 Family history of malignant neoplasm of breast
CPT/HCPCS: 77063; 77067

== ENCOUNTER 2025-01-05 12:58 | Day surgery (SDC) | payer MEDICARE ==
[2025-01-04 13:00] VITALS: BMI 33.7
[~2025-01-05 12:58] MED LIST changes: -PROPOFOL 10 MG/ML 20 ML VIAL IV ONE
[2025-01-05] MEDS: IV FLUID CONTINUATION 1,000 ML IV ONE (13:08)
[2025-01-05 13:30] VITALS: TEMP 97.8
[2025-01-05] MEDS ORDERED: LABETALOL 5 MG/ML VIAL MDV ONE (13:52)
[2025-01-05] MEDS ORDERED: PROPOFOL 10 MG/ML 20 ML VIAL IV ONE (13:52)
--- NOTE | 2025-01-05 13:59 | P.GSHP ---
History of Present Illness H&P Date: 01/05/25 Chief Complaint: History of colon polyps 74-year-old female here for colonoscopy. Last colonoscopy 3 years ago. Patient had serrated adenoma found in the transverse colon at the time. No bowel complaints. No family history of colon cancer. Past Medical History Past Medical History: Cancer, Hyperlipidemia, Hypertension, Mitral Valve Prolapse (MVP) Additional Past Medical History / Comment(s): hx skin cancer History of Any Multi-Drug Resistant Organisms: None Reported Past Surgical History: Hernia Repair, Hysterectomy, Joint Replacement, Orthopedic Surgery Additional Past Surgical History / Comment(s): arthroscopy lt knee, COLONOSCOPY, LT TKA, Past Anesthesia/Blood Transfusion Reactions: No Reported Reaction Smoking Status: Never smoker - Past Family History Father Family Medical History: Deep Vein Thrombosis (DVT) Sister(s) Family Medical History: Cancer Medications and Allergies Home Medications Medication Instructions Recorded Confirmed Type Simvastatin [Zocor] 20 mg PO DAILY 03/18/15 01/05/25 History Multivitamins, Thera [Multivitamin 1 tab PO DAILY 11/11/23 01/05/25 History (formulary)] Nf-Ca/Mg/Vitamin D 1 tab PO DAILY 11/11/23 01/05/25 History Ferrous Sulfate [Feosol] 325 mg PO DAILY 01/04/25 01/05/25 History Inulin/Chromium Picolinate [Fiber 1 tab PO DAILY 01/04/25 01/05/25 History Gummies Chew] Lisinopril-Hctz 20-12.5 mg 1 tab PO DAILY 01/04/25 01/05/25 History [Zestoretic 20-12.5] Multivit-Min/Folic Acid/Biotin 1 tab PO DAILY 01/04/25 01/05/25 History [Hair, Skin and Nails Softgel] Allergies Allergy/AdvReac Type Severity Reaction Status Date / Time No Known Allergies Allergy Verified 01/05/25 13:15 Surgical - Exam Vital Signs Temp Pulse Resp BP Pulse Ox 97.8 F 72 17 171/93 98 01/05/25 13:08 01/05/25 13:08 01/05/25 13:08 01/05/25 13:08 01/05/25 13:08 Physical exam: General: Well-developed, well-nourished HEENT: Normocephalic, sclerae nonicteric Abdomen: Nontender, nondistended Extremities: No edema Neuro: Alert and oriented Assessment and Plan (1) Colon polyp Narrative/Plan: Will proceed with colonoscopy at this time. Current Visit: Yes Status: Acute Code(s): K63.5 - POLYP OF COLON SNOMED Code(s): 68458772
--- NOTE | 2025-01-05 14:19 | P.PCN ---
Date of Procedure: 01/05/25 Procedure(s) Performed: PREOPERATIVE DIAGNOSIS: History of colon polyps POSTOPERATIVE DIAGNOSIS: Hepatic flexure polyp, transverse colon polyp, diverticulosis PROCEDURE: Colonoscopy with snare polypectomy ANESTHESIA: MAC SURGEON: Yves Luna M.D. SPECIMENS: Polyps ENDOSCOPIC PROCEDURE: The patient was placed on the endoscopy table in the left decubitus position. The Olympus colonoscope was inserted into the anus and passed under direct visualization to the base of the cecum. The appendiceal orifice was visualized. From that point the scope was slowly withdrawn inspecting all surfaces carefully. There were no neoplastic inflammatory or polypoid lesions throughout the cecum and ascending colon. Near the hepatic flexure proximal transverse colon there was a 10 mm firm polyp removed using the snare with cautery technique. This would not fit through the scope channel and was cut in half with a snare in order to remove it. In the transverse colon distally there was a smaller polyp measuring about 6 mm also removed using the snare with cautery technique. [place] the transverse descending sigmoid and rectum was normal with the exception of significant sigmoid diverticulosis. Digital rectal examination was normal. The patient was taken to the recovery room in stable condition per anesthesia guidelines. RECOMMENDATIONS: Await biopsy results. Consider repeat colonoscopy 3 years given the size of the hepatic flexure polyp.
[2025-01-05 14:23] VITALS: RESP 16
[2025-01-05 14:34] VITALS: BP 160/98; PULSE 70
== END 2025-01-05 15:01 | disposition home or self-care (01) ==
LOC: ORWHC2ENDO 12:58
PROVIDERS: ATTEND Surgery
DX: Z12.11 Encounter for screening for malignant neoplasm of colon (principal); D12.3 Benign neoplasm of transverse colon; K57.30 Diverticulosis of large intestine without perforation or abscess without bleeding; E78.5 Hyperlipidemia, unspecified; I10 Essential (primary) hypertension; I34.1 Nonrheumatic mitral (valve) prolapse; Z85.828 Personal history of other malignant neoplasm of skin; Z98.890 Other specified postprocedural states; Z90.710 Acquired absence of both cervix and uterus; Z96.652 Presence of left artificial knee joint; Z79.899 Other long term (current) drug therapy; Z86.0100 Personal history of colon polyps, unspecified
CPT/HCPCS: 88305; 45385; J2704; J1920